=== PATIENT | male | born 1940 | race Caucasian/White ===

== ENCOUNTER 2016-09-01 20:29 | Inpatient (IN) ==
[2016-09-01] MEDS ORDERED: *HR* Morphine 2 MG/ML SYRINGE IVP ONE (23:58)
[2016-09-02] MEDS ORDERED: Naloxone 0.4 MG/ML INJ IVP PRN (00:16)
[2016-09-02] MEDS ORDERED: Ondansetron 4 MG/2 ML VIAL IVP PRN (00:16)
[2016-09-02] MEDS ORDERED: *HR* HYDROmorphone (PF) 1 MG/ML SYRINGE IVP PRN (00:16)
[2016-09-02] MEDS ORDERED: Albumin 25% 25gram/100mL 25 GM/100 ML IV.SOLN ONE ×3 (01:21→04:11)
[2016-09-02] MEDS: Albumin 25% 25gram/100mL 25 GM/100 ML IV.SOLN IVPB PRN ×4 (01:25→05:15)
--- NOTE | 2016-09-02 02:40 | Internal Med History&Physical ---
Date of Encounter: 09/02/16 Time of Encounter: 00:30 Assessment and Plan (1) Sepsis Current visit: No Status: Acute Severe sepsis. Patient presented with fever, leukopenia with SBP as the presumed source. Initial lactate was 4.7. Repeat is ordered. Blood cultures were not drawn in the emergency department. They have been ordered stat. Patient was initially given vancomycin and Zosyn. This been changed to cefotaxime 2 mg every 8 hours. Patient received fluid hydration in the emergency department Qualifiers: Sepsis type: sepsis due to unspecified organism Qualified Code(s): A41.9 - Sepsis, unspecified organism (2) SBP (spontaneous bacterial peritonitis) Current visit: No Status: Acute Patient underwent diagnostic and therapeutic paracentesis. Please see procedure note for details. Fluid has been sent for analysis. Patient was initially started on vancomycin and Zosyn. This has been changed to cefotaxime 2 g every 8 hours. Patient was given albumin postprocedure. (3) Cirrhosis of liver with ascites Current visit: Yes Status: Acute Due to alcohol abuse. Patient did not have varices on most recent EGD. We will consult gastroenterology. Qualifiers: Hepatic cirrhosis type: alcoholic cirrhosis Qualified Code(s): K70.31 - Alcoholic cirrhosis of liver with ascites (4) COPD (chronic obstructive pulmonary disease) Current visit: Yes Status: Acute No evidence of exacerbation. Continue aerosol treatments. Qualifiers: COPD type: unspecified COPD Qualified Code(s): J44.9 - Chronic obstructive pulmonary disease, unspecified (5) Hypothyroidism Current visit: Yes Status: Acute Continue Synthroid. Qualifiers: Hypothyroidism type: unspecified Qualified Code(s): E03.9 - Hypothyroidism , unspecified (6) DVT prophylaxis Current visit: Yes Status: Acute EPCDs Internal Medicine - H&P: HPI Chief complaint: Abdominal Pain Admitted From: Emergency Dept Plans for Post Hospital Care: Home History of present illness: Mr. Abad is a 75 year old male with history of cirrhosis who presents with epigastric pain. Patient states his pain has been present for 3 days but got significantly worse today. He states his pain is mainly in the epigastric area but it is all over his abdomen. He describes it as sharp stabbing pain. He states he has never had anything like this before. He reports fever, chills, nausea, vomiting. He reports hard stools and no diarrhea. He reports decreased urine output. He denies chest pain, shortness of breath, lower extremity edema. Past Med Surg Social Fam HX - Past Medical History Medical history: cirrhosis, COPD, coronary artery disease, diabetes, GERD, hyperlipidemia, hypertension, thyroid disease, other Psychiatric history: anxiety - Past Surgical History Surgical History: coronary bypass (CABG) - Social History Smoking Status: Former smoker Packs per day: 4-5 Smokeless Tobacco Status: No Alcohol use: none Drug use: none - Family History Father Name: PRABHU ABAD Age: 85 Family Member Ethnicity: Non- Living Status: Age at : 85 Hx Family Cardiac Disorders: Yes Hx Family Respiratory Disorders: Yes (SISTER COPD) Hx Family Cancer: No Hx Family GI Disorders: No Hx Family Genitourinary Disorders: No Hx Family Endocrine Disorder: Yes Hx Family Musculoskeletal Disorders: No Hx Family Neuromuscular Disorders: No Hx Family Neurologic Disorders: Yes (MOTHER- ALZHEIMERS) Hx Family HEENT Disorders: No Hx Family Autoimmune Disorders: No Hx Family Reproductive Disorders: No Hx Family Psychosocial Disorders: No Hx Family Medical Disorders: No Internal Medicine - H&P: Meds Citalopram [CeleXA] 20 mg PO DAILY 06/10/16 [History] Finasteride [Proscar] 5 mg PO DAILY 06/10/16 [History] Levothyroxine [Synthroid] 125 mcg PO 0630 06/10/16 [History] Pantoprazole [Protonix] 40 mg PO DAILY 06/10/16 [History] Ranitidine HCl [Zantac] 300 mg PO DAILY 06/10/16 [History] Simvastatin [Zocor] 20 mg PO HS 06/10/16 [History] Tamsulosin [Flomax] 0.4 mg PO DAILY 06/10/16 [History] Tiotropium [Spiriva] 18 mcg IN DAILY 06/10/16 [History] Ascorbic Acid [Vitamin C] 500 mg PO 0630 #30 tablet 06/14/16 [Rx] Ferrous Sulfate 325 mg PO 0630 #30 tablet 06/14/16 [Rx] Folic Acid 1 mg PO DAILY #15 tablet 06/14/16 [Rx] Allergies No Known Drug Allergies Allergy (Verified 09/01/16 17:30) none All Systems PM: A 10-system review of systems was performed and is negative for pertinent findings except as documented above in the HPI. - Constitutional Constitutional: chills, fever(s) - EENT Eyes: no blurry vision, no change in vision Nose, mouth and throat: no sinus pain, no sinus pressure, no sore throat - Cardiovascular Cardiovascular ROS IM: no chest pain, no dyspnea, no edema - Respiratory Respiratory: no cough, no dyspnea - Gastrointestinal Gastrointestinal: abdominal pain, constipation, nausea, vomiting, no change in bowel habits, no hematemesis, no hematochezia, no melena - Genitourinary Genitourinary ROS male: no dysuria, no hematuria - Musculoskeletal Musculoskeletal ROS IM: no numbness, no tingling - Integumentary Integumentary IM: no erythema - Neurological Neurological ROS: no confusion, no numbness, no tingling - Psychiatric Psychiatric: no anxiety, no panic attacks - Endocrine Endocrine IM: no polydipsia, no polyuria - Constitutional General appearance: Present: A&O X 3 (Appears uncomfortable) - Head Head exam: Present: atraumatic, normal inspection, normocephalic - Eye Eye exam: Present: EOMI, PERRL, sclera anicteric - ENT ENT exam: Present: mucous membranes dry - Respiratory Respiratory exam: Present: CTAB. Absent: rales, rhonchi, wheezes - Cardiovascular Cardiovascular exam: Present: RRR. Absent: gallop, rubs, systolic murmur - GI/Abdominal GI/Abdominal exam: Present: diminished bowel sounds, distended, firm, tenderness (Diffuse). Absent: rebound, rigid Additional comments: Patient had fluid wave, dullness to percussion - Extremities Exam Extremities exam: Present: warm. Absent: pedal edema, tenderness - Neurological Exam Neurological exam: Present: alert, CN II-XII intact, oriented X3, no focal deficits
--- NOTE | 2016-09-02 02:57 | Procedure Note ---
Date of procedure: 09/02/16 Pre-op diagnosis: Ascites/concern for SBP Post-op diagnosis: same Procedure: Written consent was obtained from the patient. The abdomen was surveyed using ultrasound and a large pocket of ascitic fluid was identified in the left lower quadrant. Patient was cleaned and draped in the usual sterile fashion. The skin, subcutaneous tissues, and peritoneal lining were anesthetized using 1% lidocaine. The lorenzo in the skin was made and the catheter over needle apparatus was advanced into the peritoneal space until fluid was returned. The needle was removed and the catheter was advanced in the peritoneal space. Approximately 4 L of clear straw-colored ascitic fluid were removed and sent to the lab for analysis. The catheter was then removed intact and dressing was applied. The patient tolerated the procedure well, there are no immediate complications. The patient had immediate relief of his pain post procedure. The attending physician, Dr. Pham, was present and supervised the entire procedure. Anesthesia: local Surgeon: Deric Merlos Estimated blood loss (cc): 0 Pathology: other (4L Ascitic fluid sent to the lab) Condition: stable Disposition: floor
[2016-09-02] MEDS ORDERED: 0.9 % Sodium Chloride 500 ML IVC ONE (03:50)
[2016-09-02] MEDS: 0.9 % Sodium Chloride 1,000 ML ONE ×2 (03:55→08:46)
[2016-09-02 04:55] LABS: INR 1.9; Prothrombin Time 21.4 Seconds (9.4-12.1)
[2016-09-02 05:55] LABS: Red Cell Distribution Width 15.1 % (11.5-14.5)
[2016-09-02 05:57] LABS: Hematocrit 29.8 % (37.5-50.1); Hemoglobin 9.5 g/dL (12.9-16.9); Immature Platelets 19.1 % (1.1-6.1); Mean Corpuscular HGB Conc 31.9 g/dL (31.6-35.5); Mean Corpuscular Hemoglobin 30.8 pg (28.0-33.3); Mean Corpuscular Volume 96.8 fL (83.0-100.0); Mean Platelet Volume 13.6 fL (9.4-12.4); Red Blood Count 3.08 M/mcL (4.19-5.50)
[2016-09-02 06:24] LABS: RBC,Peritoneal Fluid < 0.002 M/mcL
[2016-09-02 06:29] LABS: Amylase,Peritoneal Fluid 13 Units/L (No Ref Range); Glucose,Peritoneal Fluid 176 mg/dL (No Ref Range); LDH,Peritoneal Fluid 36 Units/L (No Ref Range)
[2016-09-02 06:31] LABS: Total Protein,Peritoneal Fluid < 0.8 g/dL (No Ref Range)
[2016-09-02 06:34] LABS: Albumin/Globulin Ratio 1.4 (1.1-2.2); Bilirubin,Total 5.9 mg/dL (0.2-1.2); Calcium 8.1 mg/dL (8.6-10.8); Globulin 2.2 g/dL (2.4-3.5); Magnesium 1.7 mg/dL (1.6-2.6); Potassium 3.8 mEq/L (3.5-4.5); Total Protein 5.3 g/dL (6.0-8.3)
[2016-09-02 06:35] LABS: Albumin 3.1 g/dL (3.5-5.0)
[2016-09-02 07:41] LABS: Platelet Count 38 K/mcL (140-400)
[2016-09-02 08:01] LABS: Appearance of Peritoneal Fl CLEAR (Clear)
[2016-09-02] MEDS: Cefotaxime 2,000 MG in D5% in Water 100 ML IVPB SCH ×2 (08:45→17:28)
[2016-09-02 09:38] LABS: Lymphocytes # 0.8 K/mcL (0.6-4.6); Neutrophils # 11.4 K/mcL (1.6-8.9)
[2016-09-02 09:40] LABS: Burr Cells 1+ (Not Present)
[2016-09-03 00:51] LABS: blaKPC Carbapenem-Resist Gene Not Detected (Not Detect)
[2016-09-03 00:52] LABS: Acinetobacter baumannii by PCR Not Detected (Not Detect); Candida albicans by PCR Not Detected (Not Detect); Candida glabrata by PCR Not Detected (Not Detect); Candida krusei by PCR Not Detected (Not Detect); Candida parapsilosis by PCR Not Detected (Not Detect); Candida tropicalis by PCR Not Detected (Not Detect); Enterococcus by PCR Not Detected (Not Detect); Klebsiella oxytoca by PCR Not Detected (Not Detect); Klebsiella pneumoniae by PCR Not Detected (Not Detect); Pseudomonas aeruginosa by PCR Not Detected (Not Detect); Serratia marcescens by PCR Not Detected (Not Detect); Staphylococcus aureus by PCR Not Detected (Not Detect); Streptococcus agalactiae(B)PCR Not Detected (Not Detect); Streptococcus by PCR Not Detected (Not Detect); Streptococcus pneumoniae PCR Not Detected (Not Detect); Streptococcus pyogenes (A) PCR Not Detected (Not Detect)
[2016-09-03 00:54] LABS: Escherichia coli by PCR ***DETECTED*** (Not Detect)
[2016-09-03] MEDS: Cefotaxime 2,000 MG in D5% in Water 100 ML IVPB SCH ×4 (00:58→23:54)
[2016-09-03 05:08] LABS: Mean Corpuscular Volume 97.7 fL (83.0-100.0)
[2016-09-03 05:11] LABS: Hematocrit 29.7 % (37.5-50.1); Hemoglobin 9.2 g/dL (12.9-16.9); Immature Platelets 26.7 % (1.1-6.1); Mean Corpuscular Hemoglobin 30.3 pg (28.0-33.3); Mean Platelet Volume 13.8 fL (9.4-12.4); Red Blood Count 3.04 M/mcL (4.19-5.50); Red Cell Distribution Width 15.4 % (11.5-14.5)
[2016-09-03 05:16] LABS: Platelet Count 34 K/mcL (140-400)
[2016-09-03 05:34] LABS: Magnesium 1.2 mg/dL (1.6-2.6); Potassium 4.4 mEq/L (3.5-4.5)
[2016-09-03 06:12] LABS: Lymphocytes # 0.3 K/mcL (0.6-4.6); Monocytes # 0.3 K/mcL (0.0-1.3); Neutrophils # 7.5 K/mcL (1.6-8.9); Platelet Estimate Marked Decrease (Normal)
[2016-09-03] MEDS: Finasteride 5 MG TABLET PO SCH (07:44)
[2016-09-03] MEDS ORDERED: Magnesium Sulfate 2 GM in D5% in Water 100 ML IVPB ONE (10:54)
[2016-09-03] MEDS ORDERED: Albumin 25% 25gram/100mL 25 GM/100 ML IV.SOLN IVPB STA (11:02)
[2016-09-03 14:53] LABS: Calcium 8.3 mg/dL (8.6-10.8)
[2016-09-03] MEDS ORDERED: Albumin 25% 25gram/100mL 25 GM/100 ML IV.SOLN IVPB SCH (16:00)
[2016-09-03] MEDS: Ipratropium/Albuterol Neb 3 ML AER SCH ×2 (17:08→20:41)
--- NOTE | 2016-09-03 18:47 | Internal Med Progress Note ---
Date of Encounter: 09/03/16 Time of Encounter: 10:30 - Assessment and plan (1) Sepsis Current Visit: No Status: Acute Assessment and plan: secondary to GNR bacteremia and SBP. PAtient underwent paracentesis with removal of 4L. 09/02 blood culture growing GNR 1/2. ascitic fluid is growing nothing to date. 09/03 repeat BCx pending. clinically slowly improving. continue IV cefotaxime. Qualifiers: Sepsis type: sepsis due to unspecified organism Qualified Code(s): A41.9 - Sepsis, unspecified organism (2) SBP (spontaneous bacterial peritonitis) Current Visit: No Status: Acute Assessment and plan: plan as above. (3) Bacteremia due to Gram-negative bacteria Current Visit: Yes Status: Acute Assessment and plan: plan as above. (4) Acute renal failure superimposed on stage 3 chronic kidney disease Current Visit: Yes Status: Acute Assessment and plan: secondary to sepsis with episodes of hypotension in the setting of liver cirrhosis. close monitoring. IV albumin. repeat bmp this afternoon. consult nephrology. (5) Chronic respiratory failure with hypoxia Current Visit: Yes Status: Acute Assessment and plan: patient uses 2L NC at home. secondary to COPD. nebs q6hr.. (6) Liver cirrhosis Current Visit: Yes Status: Chronic Qualifiers: Hepatic cirrhosis type: unspecified hepatic cirrhosis Ascites presence: with ascites Qualified Code(s): K74.60 - Unspecified cirrhosis of liver - Subjective Interval history: patient's abdominal pain is gone. he has no complains. - Constitutional Vitals: Temp Pulse Resp BP Pulse Ox 98.3 F 68 20 103/56 94 09/03/16 16:40 09/03/16 16:40 09/03/16 18:11 09/03/16 16:40 09/03/16 18:11 General appearance: Present: A&O X 3 (Appears uncomfortable) - Neck Neck exam general surgery: Present: supple, trachea midline. Absent: lymphadenopathy - Respiratory Respiratory exam: Present: CTAB - Cardiovascular Cardiovascular exam: Present: RRR - GI/Abdominal GI/Abdominal exam: Present: normal bowel sounds, soft. Absent: distended, tenderness - Extremities Exam Extremities exam: Present: pedal edema (1+ LE edema) - Back Exam Back exam: Absent: CVA tenderness (L), CVA tenderness (R) - Neurological Exam Neurological exam: Present: alert, oriented X3, no focal deficits, strengths equal and symetr throughout. Absent: facial droop, speech deficit Internal Medicine: Result - Labs CBC & Chem 7: 09/03/16 04:09 09/03/16 13:25 Labs: Short CBC 09/03/16 Range/Units 04:09 WBC 8.2 (4.3-11.1) K/mcL Hgb 9.2 L (12.9-16.9) g/dL Hct 29.7 L (37.5-50.1) % Plt Count 34 L (140-400) K/mcL Neutrophils # 7.5 (1.6-8.9) K/mcL BMP 09/03/16 09/03/16 04:09 13:25 Sodium 139 137 Potassium 4.4 4.0 Chloride 109 107 Carbon Dioxide 23 23 BUN 30 H D 33 H Creatinine 2.80 H D 2.82 H Glucose 139 H 117 H Calcium 8.0 L 8.3 L - ABG Interpretation ABG results: PT/INR, D-dimer PT 21.4 Seconds (9.4-12.1) H 09/02/16 04:27 - VTE Documentation of Mechanical Device: Intermittent pneumatic compression device Consult Discharge Plan - Plan Referrals: Kelin Tripp, PHYSICIAN PRACTICE MARKET MANAGER [Primary Care Provider] - (THIS OFFICE WILL NOT MAKE AN APPOINTMENT UNTIL WE HAVE A DISCHARGE ORDER.)
[2016-09-04] MEDS: Ipratropium/Albuterol Neb 3 ML AER SCH ×6 (00:58→22:03)
[2016-09-04 04:18] LABS: Immature Granulocytes % 1.4 % (0-4)
[2016-09-04 04:20] LABS: Basophils % 0.2 %; Eosinophils % 0.7 %; Hematocrit 28.6 % (37.5-50.1); Hemoglobin 9.3 g/dL (12.9-16.9); Immature Platelets 20.9 % (1.1-6.1); Lymphocytes # 0.3 K/mcL (0.6-4.6); Lymphocytes % 7.3 %; Mean Corpuscular HGB Conc 32.5 g/dL (31.6-35.5); Mean Corpuscular Hemoglobin 31.1 pg (28.0-33.3); Mean Corpuscular Volume 95.7 fL (83.0-100.0); Mean Platelet Volume 14.2 fL (9.4-12.4); Monocytes # 0.3 K/mcL (0.0-1.3); Monocytes % 6.2 %; Neutrophils # 3.7 K/mcL (1.6-8.9); Red Blood Count 2.99 M/mcL (4.19-5.50); Segmented Neutrophils % 84.2 %
[2016-09-04 04:23] LABS: Platelet Count 31 K/mcL (140-400)
[2016-09-04 04:33] LABS: Calcium 8.3 mg/dL (8.6-10.8); Magnesium 1.9 mg/dL (1.6-2.6); Potassium 3.7 mEq/L (3.5-4.5)
[2016-09-04 05:10] LABS: Burr Cells 1+ (Not Present); Platelet Estimate Marked Decrease (Normal); Poikilocytosis 1+ (Not Present)
[2016-09-04] MEDS: Finasteride 5 MG TABLET PO SCH (08:01)
--- NOTE | 2016-09-04 11:40 | Internal Med Progress Note ---
Date of Encounter: 09/04/16 Time of Encounter: 10:15 - Assessment and plan (1) Sepsis Current Visit: No Status: Acute Assessment and plan: secondary to GNR bacteremia and SBP. PAtient underwent paracentesis with removal of 4L on 09/02. 09/02 blood culture growing GNR 1/. ascitic fluid is growing nothing to date. 09/03 repeat BCx pending. clinically slowly improving. continue IV cefotaxime. Qualifiers: Sepsis type: sepsis due to unspecified organism Qualified Code(s): A41.9 - Sepsis, unspecified organism (2) SBP (spontaneous bacterial peritonitis) Current Visit: No Status: Acute Assessment and plan: plan as above. (3) Bacteremia due to Gram-negative bacteria Current Visit: Yes Status: Acute Assessment and plan: plan as above. (4) Acute renal failure superimposed on stage 3 chronic kidney disease Current Visit: Yes Status: Acute Assessment and plan: pre-renal due to hypovolemia vs ATN. secondary to sepsis with episodes of hypotension in the setting of liver cirrhosis. 09/03: received 50 gm IV albumin BUn and CR has trended down slightly. GFR almmost unchanged. Nephrology consult. close monitoring. consult nephrology. (5) Ascites due to alcoholic cirrhosis Current Visit: Yes Status: Acute Assessment and plan: Patient with history of alcoholic liver cirrhosis for at least 10 years. She has had 2 paracentesis in the past, last paracentesis was over a year ago. 08/29: Patient underwent paracentesis with removal of 4 L of ascitic fluid. (6) Liver cirrhosis Current Visit: Yes Status: Chronic Assessment and plan: Patient was diagnosed with alcoholic liver cirrhosis 10 years ago. He quit drinking a long time ago. Qualifiers: Hepatic cirrhosis type: alcoholic cirrhosis Ascites presence: with ascites Qualified Code(s): K70.31 - Alcoholic cirrhosis of liver with ascites (7) Chronic respiratory failure with hypoxia Current Visit: Yes Status: Acute Assessment and plan: patient uses 2L NC at home because of COPD. 09/01 CXR showed no acute process. nebs q6hr. 08/19 echocardiogram showed LVEF 65%. - Subjective Interval history: no abdominal pain. no shortness of breath. - Constitutional Vitals: Temp Pulse Resp BP Pulse Ox 98.0 F 103 18 103/55 96 09/04/16 07:44 09/04/16 07:44 09/04/16 11:09 09/04/16 07:44 09/04/16 11:09 General appearance: Present: A&O X 3 (Appears uncomfortable) - Neck Neck exam general surgery: Absent: supple, trachea midline - Respiratory Respiratory exam: Present: decreased breath sounds - Cardiovascular Cardiovascular exam: Present: RRR - GI/Abdominal GI/Abdominal exam: Present: distended, normal bowel sounds, soft. Absent: tenderness - Extremities Exam Extremities exam: Present: pedal edema (1+ Le edema) - Neurological Exam Neurological exam: Present: alert, oriented X3, no focal deficits, strengths equal and symetr throughout. Absent: facial droop, speech deficit Internal Medicine: Result - Labs CBC & Chem 7: 09/04/16 03:11 09/04/16 03:11 Labs: Short CBC 09/04/16 Range/Units 03:11 WBC 4.4 (4.3-11.1) K/mcL Hgb 9.3 L (12.9-16.9) g/dL Hct 28.6 L (37.5-50.1) % Plt Count 31 L (140-400) K/mcL Neutrophils # 3.7 (1.6-8.9) K/mcL BMP 09/03/16 09/04/16 13:25 03:11 Sodium 137 137 Potassium 4.0 3.7 Chloride 107 107 Carbon Dioxide 23 22 BUN 33 H 37 H Creatinine 2.82 H 2.70 H Glucose 117 H 160 H Calcium 8.3 L 8.3 L - ABG Interpretation ABG results: PT/INR, D-dimer PT 21.4 Seconds (9.4-12.1) H 09/02/16 04:27 - VTE Documentation of Mechanical Device: Intermittent pneumatic compression device Consult Discharge Plan - Plan Referrals: Kelin Tripp, ELECTRICAL ENGINEERING DRAFTING OFFICER [Primary Care Provider] - (THIS OFFICE WILL NOT MAKE AN APPOINTMENT UNTIL WE HAVE A DISCHARGE ORDER.)
[2016-09-04 12:34] LABS: Calcium 8.7 mg/dL (8.6-10.8); Potassium 3.8 mEq/L (3.5-4.5)
--- NOTE | 2016-09-04 13:18 | Nephrology Consult Note ---
Date of Encounter: 09/04/16 Time of Encounter: 13:15 Assessment and Plan (1) Acute renal failure superimposed on stage 3 chronic kidney disease Current Visit: Yes Status: Acute This appears to be multifactorial. Patient with cirrhosis presenting with low blood pressure, subsequently had a paracentesis and was found to have SBP. JOAN seems to be secondary to hemodynamic changes from prerenal azotemia/ATN that is improving with treatment of his underlying infection, resuming midodrine to avoid hypotension and no longer in a volume negative state. I recommend continuing with current management and avoiding nephrotoxins and diuretics at this time. I will perform a limited JOAN work-up as the patient's renal function seems to be improving slightly. Renal dose medications. (2) Anemia Current Visit: No Status: Acute patient with folate deficiency in the past. Will check current level. Qualifiers: Anemia type: unspecified type Qualified Code(s): D64.9 - Anemia, unspecified (3) SBP (spontaneous bacterial peritonitis) Current Visit: No Status: Acute Continue antibiotics. (4) Cirrhosis of liver with ascites Current Visit: Yes Status: Acute Per primary team/GI. Qualifiers: Hepatic cirrhosis type: alcoholic cirrhosis Qualified Code(s): K70.31 - Alcoholic cirrhosis of liver with ascites History of Present Illness - Reason for Consult Consult date: 09/04/16 Acute Kidney Injury, Chronic Kidney Disease - Chief Complaint JOAN on CKD - History of Present Illness Mr. Abad is a 75 yo man with a history of cirrhosis who presents with abdominal pain and was found to have SBP. He also developed JOAN and nephrology was consulted to evaluate. History was obtained mostly from the electronic record and confirmed with the patient. He currently reports that he feels much better. He denies abdominal pain. He has a poor appetite. He denies nausea or vomiting. He denies rashes or joint swelling. He has never seen a kidney doctor per his recollection. Past Med Surg Social Fam HX - Past Medical History Medical history: cirrhosis, COPD, coronary artery disease, diabetes, GERD, hyperlipidemia, hypertension, thyroid disease, other Psychiatric history: anxiety - Past Surgical History Surgical History: coronary bypass (CABG) - Social History Smoking Status: Former smoker Packs per day: 4-5 Smokeless Tobacco Status: No Alcohol use: none Drug use: none - Family History Father Name: PRABHU ABAD Age: 85 Family Member Ethnicity: Non- Living Status: Age at : 85 Hx Family Cardiac Disorders: Yes Hx Family Respiratory Disorders: Yes (SISTER COPD) Hx Family Cancer: No Hx Family GI Disorders: No Hx Family Genitourinary Disorders: No Hx Family Endocrine Disorder: Yes Hx Family Musculoskeletal Disorders: No Hx Family Neuromuscular Disorders: No Hx Family Neurologic Disorders: Yes (MOTHER- ALZHEIMERS) Hx Family HEENT Disorders: No Hx Family Autoimmune Disorders: No Hx Family Reproductive Disorders: No Hx Family Psychosocial Disorders: No Hx Family Medical Disorders: No Medications and Allergies Citalopram [CeleXA] 20 mg PO DAILY 06/10/16 [History] Finasteride [Proscar] 5 mg PO DAILY 06/10/16 [History] Levothyroxine [Synthroid] 125 mcg PO 0630 06/10/16 [History] Pantoprazole [Protonix] 40 mg PO DAILY 06/10/16 [History] Ranitidine HCl [Zantac] 300 mg PO DAILY 06/10/16 [History] Simvastatin [Zocor] 20 mg PO HS 06/10/16 [History] Tamsulosin [Flomax] 0.4 mg PO DAILY 06/10/16 [History] Ascorbic Acid [Vitamin C] 500 mg PO 0630 #30 tablet 06/14/16 [Rx] Ferrous Sulfate 325 mg PO 0630 #30 tablet 06/14/16 [Rx] Midodrine [ProAmatine] 5 mg PO 0800,1200,1700 09/02/16 [History] Nystatin POWDER [Nystop] 1 appl TP BID 09/02/16 [History] Allergies No Known Drug Allergies Allergy (Verified 09/02/16 08:24) none Review of Systems All Systems: reviewed and no additional remarkable complaints except as stated ( as documented in the HPI.) Exam - Vital Signs Vital signs: Initial Vital Signs Pulse 83 09/01/16 23:00 Vital Signs - Last 8 Hours Temp Pulse Resp BP Pulse Ox 09/04/16 11:35 97.9 F 96 18 110/57 95 09/04/16 11:09 18 96 09/04/16 07:56 18 95 09/04/16 07:44 98.0 F 103 18 103/55 91 09/04/16 05:28 18 96 Intake and Output 09/03/16 09/04/16 09/04/16 23:59 07:59 15:59 Intake Total 100 / 100 220 / 220 Output Total 500 / 500 Balance 100 / 100 -500 / -500 220 / 220 Intake: IV Fluids 100 / 100 100 / 100 Claforan 2,000 MG In 100 / 100 Dextrose 5% 100 ML @ 200 mls/hr IVPB Q8HR [facility] Rx#: [id number] Rocephin 1,000 MG In 100 / 100 Dextrose 5% (Minibag+) 100 ML 100 ML @ 200 mls/ hr IVPB Q24H [facility] Rx#: [id number] Oral 0 / 0 120 / 120 Output: Urine 500 / 500 Other: Meal Breakfast Percent of Meal Consumed 25% Weight 104.5 kg Patient Weight 09/04/16 23:59 Weight 104.5 kg - General Appearance General appearance: well-developed, well-nourished, chronically ill, frail EENT: ATNC Neck: supple Respiratory: clear Cardiology: edema, regular rate, regular rhythm Gastrointestinal: normoactive bowel sounds, no tenderness, obese Integumentary: warm and dry Neurologic: alert and oriented x3 Musculoskeletal: no cyanosis Psychiatric: mood/affect appropriate Results - Lab Results 09/04/16 03:11 09/04/16 12:15 Most recent lab results Calcium 8.7 mg/dL (8.6-10.8) 09/04/16 12:15 Phosphorus 3.0 mg/dL (2.3-4.7) 09/02/16 04:27 Magnesium 1.9 mg/dL (1.6-2.6) 09/04/16 03:11 Consult Discharge Plan - Plan Referrals: Kelin Tripp, ENGINEER AND GEOLOGIST [Primary Care Provider] - (THIS OFFICE WILL NOT MAKE AN APPOINTMENT UNTIL WE HAVE A DISCHARGE ORDER.)
[2016-09-04 16:24] LABS: Bilirubin,Urine Small (Negative); Blood,Urine Negative (Negative); Clarity,Urine Cloudy (Clear); Color,Urine Dark Yellow (Yellow); Glucose,Urine (UA) Normal (Normal); Ketones,Urine Trace mg/dL (Negative); Leukocyte Esterase,Urine Trace (Negative); Nitrite,Urine Negative (Negative); PH,Urine 5.5 pH Units (5.0-8.0); Protein,Urine Trace mg/dL (Neg-Trace); Specific Gravity,Urine 1.018 (1.010-1.025); Urobilinogen,Urine Normal (Normal)
[2016-09-04 16:27] LABS: Hyaline Casts,Urine None Seen per lpf (None-Few); Squamous Epithelial Cell,Urine Moderate per lpf (None-Few)
[2016-09-04 16:38] LABS: Bacteria,Urine Few per hpf (None-Few)
[2016-09-04 17:03] LABS: Protein/Creatinine Ratio,Urine 0.2 mg/mg (0-0.20)
[2016-09-05] MEDS: Ipratropium/Albuterol Neb 3 ML AER SCH ×7 (00:10→23:57)
[2016-09-05 03:21] LABS: Eosinophils % 2.1 %; Hematocrit 28.6 % (37.5-50.1); Hemoglobin 9.2 g/dL (12.9-16.9); Immature Granulocytes % 0.4 % (0-4); Lymphocytes % 10.3 %; Mean Corpuscular HGB Conc 32.2 g/dL (31.6-35.5); Mean Corpuscular Hemoglobin 30.5 pg (28.0-33.3); Mean Corpuscular Volume 94.7 fL (83.0-100.0); Mean Platelet Volume 13.4 fL (9.4-12.4); Monocytes % 9.3 %; Red Blood Count 3.02 M/mcL (4.19-5.50); Red Cell Distribution Width 14.9 % (11.5-14.5); Segmented Neutrophils % 77.5 %
[2016-09-05 03:22] LABS: Basophils % 0.4 %; Eosinophils # 0.1 K/mcL (0.0-0.6); Lymphocytes # 0.3 K/mcL (0.6-4.6); Monocytes # 0.3 K/mcL (0.0-1.3); Neutrophils # 2.2 K/mcL (1.6-8.9); Platelet Count 32 K/mcL (140-400)
[2016-09-05 03:33] LABS: Calcium 8.5 mg/dL (8.6-10.8); Magnesium 2.1 mg/dL (1.6-2.6); Phosphorous 1.6 mg/dL (2.3-4.7); Potassium 3.7 mEq/L (3.5-4.5)
[2016-09-05] MEDS: Finasteride 5 MG TABLET PO SCH (07:57)
--- NOTE | 2016-09-05 13:46 | Nephrology Progress Note ---
Date of Encounter: 09/05/16 Time of Encounter: 13:43 - Assessment and Plan (1) Acute renal failure superimposed on stage 3 chronic kidney disease Current Visit: Yes Status: Acute Renal function improving with holding diuresis and treatment of his infection. Patient with increasing ascites and will likely get paracentesis Tuesday. Give albumin with paracentesis and plan to restart low dose loop diuretic that can be titrated if his renal function stabilizes. (2) Anemia Current Visit: No Status: Acute Monitor for bleeding. Transfuse as needed. Deficient in folate. Will order replacement. Qualifiers: Anemia type: unspecified type Qualified Code(s): D64.9 - Anemia, unspecified (3) SBP (spontaneous bacterial peritonitis) Current Visit: No Status: Acute Continue antibiotic per primary team. (4) Cirrhosis of liver with ascites Current Visit: Yes Status: Acute Will need diuresis once his renal function has stabilized. Per primary team. Qualifiers: Hepatic cirrhosis type: alcoholic cirrhosis Qualified Code(s): K70.31 - Alcoholic cirrhosis of liver with ascites Subjective Principal diagnosis: JOAN on CKD Interval history: Patient seen and evaluated. He is sitting in a chair eating his lunch. His only complaint is that his stomach feels like it may be swelling. ROS otherwise stable. Objective - Vital Signs Vital signs: Vital Signs Temp Pulse Resp BP Pulse Ox 09/05/16 12:27 93 18 97 09/05/16 11:24 97.9 F 93 18 110/61 97 09/05/16 11:15 18 96 09/05/16 08:00 18 95 09/05/16 07:30 105 18 95 09/05/16 07:20 98.0 F 93 16 107/53 96 09/05/16 04:55 18 97 09/05/16 03:58 98.0 F 89 12 125/71 94 09/05/16 03:57 83 09/05/16 00:30 98.2 F 82 14 107/58 94 09/05/16 00:10 18 96 09/04/16 21:44 98 09/04/16 20:58 98.0 F 89 17 111/55 97 09/04/16 20:15 90 09/04/16 16:25 98.0 F 94 18 111/82 96 09/04/16 16:07 18 95 09/04/16 16:00 94 Intake and Output 09/04/16 09/05/16 09/05/16 23:59 07:59 15:59 Intake Total 880 / 880 360 / 360 Output Total 500 / 500 450 / 450 Balance 380 / 380 -450 / -450 360 / 360 Intake: Oral 880 / 880 360 / 360 Output: Urine 500 / 500 450 / 450 Other: Meal Dinner Breakfast Percent of Meal Consumed 60% 90% # Bowel Movement Diapers 1 Weight 100.2 kg Patient Weight 09/05/16 23:59 Weight 100.2 kg - General Appearance General appearance: Present: well-developed, well-nourished EENT: Present: ATNC Neck: Present: supple Respiratory: Present: clear Cardiology: Present: edema, regular rate, regular rhythm Gastrointestinal: Present: normoactive bowel sounds, no tenderness, distended ( and more firm compared to yesterday. ) Integumentary: Present: warm and dry Neurologic: Present: alert and oriented x3 Musculoskeletal: Present: no cyanosis Psychiatric: Present: mood/affect appropriate - Lab 09/05/16 03:11 09/05/16 03:11 Most recent lab results Calcium 8.5 mg/dL (8.6-10.8) L 09/05/16 03:11 Phosphorus 1.6 mg/dL (2.3-4.7) L 09/05/16 03:11 Magnesium 2.1 mg/dL (1.6-2.6) 09/05/16 03:11 Urine Creatinine 110 mg/dL 09/04/16 16:10 Urine Total Protein 22 mg/dL (1-14) H 09/04/16 16:10 - VTE Documentation of Mechanical Device: Intermittent pneumatic compression device Consult Discharge Plan - Plan Referrals: Kelin Tripp, THERAPEUTIC MENTOR [Primary Care Provider] - (THIS OFFICE WILL NOT MAKE AN APPOINTMENT UNTIL WE HAVE A DISCHARGE ORDER.)
[2016-09-05] MEDS: Folic Acid 1 MG TABLET PO SCH (14:29)
--- NOTE | 2016-09-05 17:38 | Internal Med Progress Note ---
Date of Encounter: 09/05/16 Time of Encounter: 11:00 - Assessment and plan (1) Sepsis Current Visit: No Status: Acute Assessment and plan: secondary to GNR bacteremia and SBP. PAtient underwent paracentesis with removal of 4L on 09/02. 09/02 blood culture grew pansensitive E coli /. ascitic fluid is growing nothing to date. clinically slowly improving. continue IV ceftriaxone. repeat blood cultures. Qualifiers: Sepsis type: sepsis due to unspecified organism Qualified Code(s): A41.9 - Sepsis, unspecified organism (2) SBP (spontaneous bacterial peritonitis) Current Visit: No Status: Acute Assessment and plan: plan as above. (3) Bacteremia due to Gram-negative bacteria Current Visit: Yes Status: Acute Assessment and plan: plan as above. (4) Acute renal failure superimposed on stage 3 chronic kidney disease Current Visit: Yes Status: Acute Assessment and plan: pre-renal due to hypovolemia vs ATN. secondary to sepsis with episodes of hypotension in the setting of liver cirrhosis. 09/03: received 50 gm IV albumin BUn and CR continues to trend down. Nephrology is following. close monitoring. consult nephrology. (5) Ascites due to alcoholic cirrhosis Current Visit: Yes Status: Acute Assessment and plan: Patient with history of alcoholic liver cirrhosis for at least 10 years. She has had 2 paracentesis in the past, last paracentesis was over a year ago. 08/29: Patient underwent paracentesis with removal of 4 L of ascitic fluid. Worsening of ascites. repeat IR paracentesis in AM. (6) Liver cirrhosis Current Visit: Yes Status: Chronic Assessment and plan: Patient was diagnosed with alcoholic liver cirrhosis 10 years ago. He quit drinking a long time ago. Qualifiers: Hepatic cirrhosis type: alcoholic cirrhosis Ascites presence: with ascites Qualified Code(s): K70.31 - Alcoholic cirrhosis of liver with ascites (7) Chronic respiratory failure with hypoxia Current Visit: Yes Status: Acute Assessment and plan: patient uses 2L NC at home because of COPD. 09/01 CXR showed no acute process. nebs q6hr. 08/19 echocardiogram showed LVEF 65%. - Subjective Interval history: patient has no abdominal pain but feels his abdomen is more distended compared to yesterday. - Constitutional Vitals: Temp Pulse Resp BP Pulse Ox 97.7 F 87 18 116/61 98 09/05/16 16:23 05/21/17 16:42 09/05/16 16:23 09/05/16 16:23 09/05/16 16:23 General appearance: Present: cooperative, A&O X 3 (Appears uncomfortable), pleasant, no acute distress, answers questions appropriately - Respiratory Respiratory exam: Present: decreased breath sounds (at lung bases) - Cardiovascular Cardiovascular exam: Present: RRR - GI/Abdominal GI/Abdominal exam: Present: distended, normal bowel sounds, soft. Absent: tenderness - Extremities Exam Extremities exam: Present: pedal edema (2+ Le edema) - Neurological Exam Neurological exam: Present: alert, oriented X3, no focal deficits, strengths equal and symetr throughout. Absent: facial droop, speech deficit Internal Medicine: Result - Labs CBC & Chem 7: 09/05/16 03:11 09/05/16 03:11 Labs: Short CBC 09/05/16 Range/Units 03:11 WBC 2.8 L (4.3-11.1) K/mcL Hgb 9.2 L (12.9-16.9) g/dL Hct 28.6 L (37.5-50.1) % Plt Count 32 L (140-400) K/mcL Neutrophils # 2.2 (1.6-8.9) K/mcL BMP 09/05/16 03:11 Sodium 139 Potassium 3.7 Chloride 108 Carbon Dioxide 23 BUN 33 H Creatinine 2.35 H Glucose 147 H Calcium 8.5 L - ABG Interpretation ABG results: PT/INR, D-dimer PT 21.4 Seconds (9.4-12.1) H 09/02/16 04:27 - VTE Documentation of Mechanical Device: Intermittent pneumatic compression device Consult Discharge Plan - Plan Referrals: Kelin Tripp, SYSTEM DEVELOPMENT ENGINEER [Primary Care Provider] - (THIS OFFICE WILL NOT MAKE AN APPOINTMENT UNTIL WE HAVE A DISCHARGE ORDER.)
[2016-09-06] MEDS: Ipratropium/Albuterol Neb 3 ML AER SCH ×6 (04:06→23:58)
[2016-09-06 05:12] LABS: Hematocrit 30.8 % (37.5-50.1)
[2016-09-06 05:14] LABS: Basophils % 0.4 %; Eosinophils # 0.1 K/mcL (0.0-0.6); Eosinophils % 3.4 %; Hemoglobin 9.9 g/dL (12.9-16.9); Immature Granulocytes % 0.7 % (0-4); Immature Platelets 13.7 % (1.1-6.1); Lymphocytes # 0.4 K/mcL (0.6-4.6); Lymphocytes % 15.3 %; Mean Corpuscular HGB Conc 32.1 g/dL (31.6-35.5); Mean Corpuscular Hemoglobin 30.3 pg (28.0-33.3); Mean Corpuscular Volume 94.2 fL (83.0-100.0); Monocytes # 0.3 K/mcL (0.0-1.3); Monocytes % 10.1 %; Neutrophils # 1.9 K/mcL (1.6-8.9); Red Blood Count 3.27 M/mcL (4.19-5.50); Red Cell Distribution Width 14.9 % (11.5-14.5); Segmented Neutrophils % 70.1 %
[2016-09-06 05:16] LABS: INR 1.4; Prothrombin Time 14.9 Seconds (9.4-12.1)
[2016-09-06 05:31] LABS: Albumin 2.8 g/dL (3.5-5.0); Bilirubin,Direct 1.4 mg/dL (0.0-0.5); Bilirubin,Indirect 0.6 mg/dL (0.0-1.2); Calcium 8.9 mg/dL (8.6-10.8); Globulin 2.8 g/dL (2.4-3.5); Phosphorous 1.6 mg/dL (2.3-4.7); Potassium 3.9 mEq/L (3.5-4.5); Total Protein 5.6 g/dL (6.0-8.3)
[2016-09-06 05:35] LABS: Platelet Count 38 K/mcL (140-400)
[2016-09-06] MEDS: Folic Acid 1 MG TABLET PO SCH (10:23)
[2016-09-06] MEDS: Finasteride 5 MG TABLET PO SCH (10:23)
[2016-09-06] MEDS: Albumin 25% 25gram/100mL 25 GM/100 ML IV.SOLN IVPB SCH ×2 (12:33→17:01)
[2016-09-06] MEDS ORDERED: 0.9 % Sodium Chloride 1,000 ML ONE (14:41)
[2016-09-06] MEDS ORDERED: Saliva Stimulant 100ml BOTTLE MM PRN (15:39)
[2016-09-06 16:10] LABS: Bacteria,Urine Few per hpf (None-Few); RBC,Urine 0-3 per hpf (0-3); WBC,Urine 0-3 per hpf (0-3); Yeast,Urine Few per hpf (None Seen)
[2016-09-06 16:11] LABS: Bilirubin,Urine Negative (Negative); Blood,Urine Trace (Negative); Clarity,Urine Clear (Clear); Color,Urine Yellow (Yellow); Glucose,Urine (UA) Normal (Normal); Ketones,Urine Negative (Negative); Specific Gravity,Urine 1.016 (1.010-1.025)
[2016-09-06 16:12] LABS: Leukocyte Esterase,Urine Small (Negative); Nitrite,Urine Negative (Negative); Protein,Urine 30 mg/dL (Neg-Trace); Urobilinogen,Urine Normal (Normal)
--- NOTE | 2016-09-06 17:31 | Nephrology Progress Note ---
Date of Encounter: 09/06/16 Time of Encounter: 17:30 - Assessment and Plan (1) Acute renal failure superimposed on stage 3 chronic kidney disease Current Visit: Yes Status: Acute Renal function improving with holding diuresis and treatment of his infection. Patient with increasing ascites and will get paracentesis Tuesday. Give albumin with paracentesis and plan to restart low dose loop diuretic Tuesday that can be titrated if his renal function stabilizes. (2) Anemia Current Visit: No Status: Acute Monitor for bleeding. Transfuse as needed. Deficient in folate. Will order replacement. Qualifiers: Anemia type: unspecified type Qualified Code(s): D64.9 - Anemia, unspecified (3) SBP (spontaneous bacterial peritonitis) Current Visit: No Status: Acute Continue antibiotic per primary team. (4) Cirrhosis of liver with ascites Current Visit: Yes Status: Acute Will need diuresis once his renal function has stabilized. Per primary team. Qualifiers: Hepatic cirrhosis type: alcoholic cirrhosis Qualified Code(s): K70.31 - Alcoholic cirrhosis of liver with ascites Subjective Principal diagnosis: JOAN on CKD Interval history: Patient seen and evaluated. He is sitting in a chair eating his lunch. His only complaint is that his stomach feels like it may be swelling. ROS otherwise stable. Objective - Vital Signs Vital signs: Vital Signs Temp Pulse Resp BP Pulse Ox 09/06/16 16:15 98.3 F 89 18 124/64 97 09/06/16 16:05 16 97 09/06/16 14:40 98.1 F 89 16 124/64 97 09/06/16 14:22 98.2 F 91 17 120/61 96 09/06/16 14:08 98.2 F 92 17 127/65 96 09/06/16 12:00 97 09/06/16 11:52 98.1 F 97 18 128/65 97 09/06/16 08:24 98.1 F 91 18 110/53 93 09/06/16 08:00 86 09/06/16 07:54 21 94 09/06/16 04:22 98.1 F 92 21 143/77 94 09/06/16 04:07 16 97 09/06/16 04:03 83 09/06/16 00:00 16 93 09/05/16 23:59 98.5 F 84 138/76 92 09/05/16 23:44 85 09/05/16 20:24 16 96 09/05/16 19:45 88 09/05/16 19:05 98.4 F 97 23 136/69 96 09/05/16 18:01 105 20 98 Intake and Output 09/06/16 09/06/16 09/06/16 07:59 15:59 23:59 Intake Total 855 / 855 Output Total 400 / 400 575 / 575 Balance -400 / -400 280 / 280 Intake: IV Fluids 100 / 100 Flexbumin 25 gm In 100 ml 100 / 100 @ 60 mls/hr IVPB Q8H LEONORA Rx#:[id number] Oral 720 / 720 Blood Product 35 / 35 Platelet Pheresis Lp Irr 35 / 35 1st Unit [id number] Output: Urine 400 / 400 575 / 575 Other: Meal Lunch Percent of Meal Consumed 20% # Voids 2 Weight 101.2 kg 101.2 kg Patient Weight 09/06/16 23:59 Weight 101.2 kg - General Appearance General appearance: Present: well-developed, well-nourished EENT: Present: ATNC Neck: Present: supple Respiratory: Present: clear Cardiology: Present: edema, regular rate, regular rhythm Gastrointestinal: Present: no tenderness, distended Integumentary: Present: warm and dry Neurologic: Present: alert and oriented x3 Psychiatric: Present: mood/affect appropriate - Lab 09/06/16 11:16 09/06/16 04:27 Most recent lab results Calcium 8.9 mg/dL (8.6-10.8) 09/06/16 04:27 Phosphorus 1.6 mg/dL (2.3-4.7) L 09/06/16 04:27 Magnesium 2.1 mg/dL (1.6-2.6) 09/05/16 03:11 Urine Creatinine 110 mg/dL 09/04/16 16:10 Urine Total Protein 22 mg/dL (1-14) H 09/04/16 16:10 - VTE Documentation of Mechanical Device: Intermittent pneumatic compression device Consult Discharge Plan - Plan Referrals: Kelin Tripp, ASSURANCE ENGINEER [Primary Care Provider] - (THIS OFFICE WILL NOT MAKE AN APPOINTMENT UNTIL WE HAVE A DISCHARGE ORDER.)
--- NOTE | 2016-09-06 18:28 | Internal Med Progress Note ---
Date of Encounter: 09/06/16 Time of Encounter: 14:30 - Assessment and plan (1) Sepsis Current Visit: No Status: Acute Assessment and plan: resolved. secondary to E coli bacteremia and SBP. PAtient underwent paracentesis with removal of 4L on 09/02. 09/02 blood culture grew pansensitive E coli /. ascitic fluid is growing nothing to date. Qualifiers: Sepsis type: sepsis due to unspecified organism Qualified Code(s): A41.9 - Sepsis, unspecified organism (2) SBP (spontaneous bacterial peritonitis) Current Visit: No Status: Acute Assessment and plan: plan as above. (3) Bacteremia due to Gram-negative bacteria Current Visit: Yes Status: Acute Assessment and plan: E coli bacteremia, pansensitive. continue IV ceftriaxone until September 16. (4) Acute renal failure superimposed on stage 3 chronic kidney disease Current Visit: Yes Status: Acute Assessment and plan: pre-renal due to hypovolemia vs ATN. secondary to sepsis with episodes of hypotension in the setting of liver cirrhosis. 09/03: received 50 gm IV albumin BUn and CR continues to trend down. Nephrology is following. resume furosemide. close monitoring. consult nephrology. (5) Ascites due to alcoholic cirrhosis Current Visit: Yes Status: Acute Assessment and plan: Patient with history of alcoholic liver cirrhosis for at least 10 years. She has had 2 paracentesis in the past, last paracentesis was over a year ago. 08/29: Patient underwent paracentesis with removal of 4 L of ascitic fluid. Worsening of ascites. patient had a transfusion reaction during platelet transfusion. will hold paracentesis until tomorrow. (6) Liver cirrhosis Current Visit: Yes Status: Chronic Assessment and plan: Patient was diagnosed with alcoholic liver cirrhosis 10 years ago. He quit drinking a long time ago. Qualifiers: Hepatic cirrhosis type: alcoholic cirrhosis Ascites presence: with ascites Qualified Code(s): K70.31 - Alcoholic cirrhosis of liver with ascites (7) Chronic respiratory failure with hypoxia Current Visit: Yes Status: Acute Assessment and plan: patient uses 2L NC at home because of COPD. 09/01 CXR showed no acute process. nebs q6hr. 08/19 echocardiogram showed LVEF 65%. (8) Transfusion reaction Current Visit: Yes Status: Acute Assessment and plan: patient developed hives and itching after 35 ml of platelet was infused. platelet transfusion stopped. IV Benadryl given stat. Qualifiers: Encounter type: initial encounter Qualified Code(s): T80.92XA - Unspecified transfusion reaction, initial encounter - Subjective Interval history: patient had allergic reaction to platelet transfusion. he started to itch all over his body and developed hives on his back and left arm. - Constitutional Vitals: Temp Pulse Resp BP Pulse Ox 98.3 F 89 18 124/64 97 09/06/16 16:15 09/06/16 16:15 09/06/16 16:15 09/06/16 16:15 09/06/16 16:15 General appearance: Present: cooperative, A&O X 3 (Appears uncomfortable), pleasant, no acute distress, answers questions appropriately - Neck Neck exam general surgery: Present: supple, trachea midline. Absent: lymphadenopathy - Respiratory Respiratory exam: Present: CTAB - Cardiovascular Cardiovascular exam: Present: RRR - GI/Abdominal GI/Abdominal exam: Present: distended, normal bowel sounds, soft. Absent: tenderness - Extremities Exam Extremities exam: Present: pedal edema (2+ Le edema) - Back Exam Back exam: Absent: CVA tenderness (L), CVA tenderness (R) - Neurological Exam Neurological exam: Present: alert, oriented X3, no focal deficits, strengths equal and symetr throughout. Absent: facial droop, speech deficit - Skin Skin exam: Present: rash (urticaria on back and left arm) Internal Medicine: Result - Labs CBC & Chem 7: 09/06/16 11:16 09/06/16 04:27 Labs: Short CBC 09/06/16 09/06/16 Range/Units 04:27 11:16 WBC 2.7 L (4.3-11.1) K/mcL Hgb 9.9 L (12.9-16.9) g/dL Hct 30.8 L (37.5-50.1) % Plt Count 38 L 37 L (140-400) K/mcL Neutrophils # 1.9 (1.6-8.9) K/mcL BMP 09/06/16 04:27 Sodium 139 Potassium 3.9 Chloride 108 Carbon Dioxide 24 BUN 26 Creatinine 1.98 H Glucose 154 H Calcium 8.9 Liver Function 09/06/16 Range/Units 04:27 Total Bilirubin 2.0 H (0.2-1.2) mg/dL Direct Bilirubin 1.4 H (0.0-0.5) mg/dL AST 22 (5-34) Units/L ALT 19 (0-55) Units/L Alkaline Phosphatase 132 H (38-126) Units/L Albumin 2.8 L (3.5-5.0) g/dL Urine 09/06/16 Range/Units 15:35 Urine Color Yellow (Yellow) Urine Clarity Clear (Clear) Urine pH 6.0 (5.0-8.0) pH Units Ur Specific [place] 1.016 (1.010-1.025) Urine Protein 30 H (Neg-Trace) mg/dL Urine Glucose (UA) Normal (Normal) mg/dL - ABG Interpretation ABG results: PT/INR, D-dimer PT 14.9 Seconds (9.4-12.1) H 09/06/16 04:27 - VTE Documentation of Mechanical Device: Intermittent pneumatic compression device Consult Discharge Plan - Plan Referrals: Kelin Tripp, FLAME CHANNELER [Primary Care Provider] - (THIS OFFICE WILL NOT MAKE AN APPOINTMENT UNTIL WE HAVE A DISCHARGE ORDER.)
[2016-09-07] MEDS: Ipratropium/Albuterol Neb 3 ML AER SCH ×3 (04:15→11:28)
[2016-09-07 06:58] LABS: Magnesium 1.6 mg/dL (1.6-2.6); Potassium 4.3 mEq/L (3.5-4.5)
[2016-09-07 07:09] LABS: Basophils % 0.3 %; Mean Corpuscular HGB Conc 31.8 g/dL (31.6-35.5)
[2016-09-07 07:11] LABS: Eosinophils # 0.1 K/mcL (0.0-0.6); Eosinophils % 3.3 %; Hematocrit 29.9 % (37.5-50.1); Hemoglobin 9.5 g/dL (12.9-16.9); Immature Granulocytes % 0.6 % (0-4); Immature Platelets 13.8 % (1.1-6.1); Lymphocytes # 0.4 K/mcL (0.6-4.6); Mean Corpuscular Volume 94.3 fL (83.0-100.0); Mean Platelet Volume 12.5 fL (9.4-12.4); Monocytes # 0.4 K/mcL (0.0-1.3); Monocytes % 12.4 %; Neutrophils # 2.4 K/mcL (1.6-8.9); Red Blood Count 3.17 M/mcL (4.19-5.50); Red Cell Distribution Width 14.9 % (11.5-14.5); Segmented Neutrophils % 70.4 %
[2016-09-07 07:14] LABS: Platelet Count 38 K/mcL (140-400)
[2016-09-07] MEDS: Finasteride 5 MG TABLET PO SCH (07:37)
[2016-09-07] MEDS: Folic Acid 1 MG TABLET PO SCH (07:37)
[2016-09-07 07:47] LABS: Platelet Estimate Decreased (Normal); Reactive Lymphocytes Present (Not Present)
[2016-09-07] MEDS ORDERED: Lactobacillus 1 EACH CAP.SPRINK PO SCH (09:00)
[2016-09-07] MEDS ORDERED: Furosemide 40 MG TABLET PO SCH (09:00)
--- NOTE | 2016-09-07 10:52 | Discharge Summary ---
Date of Encounter: 09/07/16 Time of Encounter: 10:49 - Discharge Diagnosis (1) Sepsis Priority: Primary Status: Acute Qualifiers: Sepsis type: Escherichia coli Qualified Code(s): A41.51 - Sepsis due to Escherichia coli [E. coli] (2) Acute renal failure superimposed on stage 3 chronic kidney disease Priority: Secondary Status: Acute (3) Ascites due to alcoholic cirrhosis Priority: Secondary Status: Acute (4) Bacteremia due to Gram-negative bacteria Priority: Secondary Status: Acute (5) Chronic respiratory failure with hypoxia Priority: Secondary Status: Acute (6) Liver cirrhosis Priority: Secondary Status: Chronic Qualifiers: Hepatic cirrhosis type: alcoholic cirrhosis Ascites presence: with ascites Qualified Code(s): K70.31 - Alcoholic cirrhosis of liver with ascites (7) SBP (spontaneous bacterial peritonitis) Priority: Secondary Status: Acute (8) Transfusion reaction Priority: Secondary Status: Acute Qualifiers: Encounter type: initial encounter Qualified Code(s): T80.92XA - Unspecified transfusion reaction, initial encounter - Discharge Medications Prescriptions: cefTRIAXone [Rocephin] 1,000 mg IVPB DAILY #9 vial Furosemide [Lasix] 40 mg PO DAILY #30 tablet Home Medications: Citalopram [CeleXA] 20 mg PO DAILY 06/10/16 [History] Finasteride [Proscar] 5 mg PO DAILY 06/10/16 [History] Levothyroxine [Synthroid] 125 mcg PO 0630 06/10/16 [History] Pantoprazole [Protonix] 40 mg PO DAILY 06/10/16 [History] Ranitidine HCl [Zantac] 300 mg PO DAILY 06/10/16 [History] Simvastatin [Zocor] 20 mg PO HS 06/10/16 [History] Tamsulosin [Flomax] 0.4 mg PO DAILY 06/10/16 [History] Ascorbic Acid [Vitamin C] 500 mg PO 0630 #30 tablet 06/14/16 [Rx] Ferrous Sulfate 325 mg PO 0630 #30 tablet 06/14/16 [Rx] Midodrine [ProAmatine] 5 mg PO 0800,1200,1700 09/02/16 [History] Nystatin POWDER [Nystop] 1 appl TP BID 09/02/16 [History] cefTRIAXone [Rocephin] 1,000 mg IVPB DAILY #9 vial 09/06/16 [Rx] Furosemide [Lasix] 40 mg PO DAILY #30 tablet 09/07/16 [Rx] Allergies/Adverse Reactions: Allergies No Known Drug Allergies Allergy (Verified 09/02/16 08:24) none Procedures/tests Complete & Pending: Procedures Performed prior 72 hours Category Date Time Status US retroperitoneal limited [US] Routine Exams 09/04/16 13:28 Completed abdominal ultrasound - limited [US abdomen limited] [US Exams 09/06/16 14:52 Completed ] Routine IR paracentesis ultrasound [IR] Routine IR 09/07/16 Ordered Date of admission: 09/02/16 03:36 Primary care physician: Kelin Tripp CNP Consults: 09/04/16 10:46 Consult to Nephrology [CONS] Routine Consulting Provider: Kidney Katie/DANI/ADRY/ROQUE Reason for Consult: JOAN Call Completed: Yes 09/07/16 09:07 Consult to Invasive Line Access Team [CONS] Routine Reason for Consult: [facility] ATB Line Type: EPIV Discharging clinician: Miladis Baptiste Anticipated date of discharge: 09/07/16 - Patient Status Disposition: Home Health Service Condition: Fair Functional capacity at discharge: independent ambulation Overall status at discharge: patient is progressing back to baseline - Discharge Instructions Instructions: Sepsis (DC) Follow Up With: Kelin Tripp CNP [Primary Care Provider] - (THIS OFFICE WILL NOT MAKE AN APPOINTMENT UNTIL WE HAVE A DISCHARGE ORDER.) Additional Instructions: Follow-up with nephrology in 1-2 weeks For a follow-up with gastroenterology in 1 week for ascites and cirrhosis - Diet and Activity Activity: increase activity as tolerated Diet: low salt diet Hospital course: Mr. Shannon is a 75 year old male with history of alcoholic liver cirrhosis who was admitted here with spontaneous bacterial peritonitis. He was treated with IV antibiotics. He was also having signs and symptoms of sepsis. This was believed to be deviated to bacterial peritonitis. Patient's blood cultures turned positive for Escherichia coli which is pansensitive. Repeat blood cultures since then have been negative. Patient underwent paracentesis on admission with aspiration of 4 L of ascites fluid. Fluid culture was negative. This fluid appears to be transudative. Presently the patient is doing much better and is stable to be discharged home on IV antibiotics to complete treatment course. Patient also had acute kidney injury on presentation superimposed on his chronic kidney disease stage III. Nephrology was consulted. Patient received IV albumin during his stay here and his diuretics were held. His renal function has now returned to baseline. He has now been placed back on diuretics and will follow up with nephrology as outpatient. Patient developed transfusion reaction with hives while he was receiving platelets. The infusion was stopped. His symptoms have subsided after he received Benadryl. - Time Spent with Patient Total time spent providing and/or coordinating discharge services: Greater than 30 minutes (35 min) - Constitutional Vitals: Temp Pulse Resp BP Pulse Ox 99.0 F 81 16 132/78 91 09/07/16 08:07 09/07/16 09:02 09/07/16 08:18 09/07/16 08:07 09/07/16 08:18 General appearance: Present: cooperative, A&O X 3 (Appears uncomfortable), pleasant, no acute distress, answers questions appropriately - Respiratory Respiratory exam: Present: CTAB. Absent: accessory muscle use, rales, rhonchi, wheezes - GI/Abdominal GI/Abdominal exam: Present: distended, normal bowel sounds, soft, no peritoneal signs. Absent: tenderness Additional comments: Ascites present - Neurological Exam Neurological exam: Present: CN II-XII intact, oriented X3, no focal deficits. Absent: facial droop, speech deficit - Skin Skin exam: Present: dry, intact - VTE Documentation of Mechanical Device: Intermittent pneumatic compression device - Attending Attestation This document has been at least partially created by [employer] recognition technology by Dr. Baptiste. Errors in grammar, wording or other phrases may exist. If errors are found after the documentation is signed, they will be addressed individually in the addendum section of this document when appropriate.
[2016-09-07 11:07] VITALS: BP 125/67
--- NOTE | 2016-09-07 11:15 | Nephrology Progress Note ---
Date of Encounter: 09/07/16 Time of Encounter: 11:12 - Assessment and Plan (1) Acute renal failure superimposed on stage 3 chronic kidney disease Current Visit: Yes Status: Acute Kidney function continues to improve. BMP one week after discharge Follow up in office with Dr Cobian in 3 weeks (2) Cirrhosis of liver with ascites Current Visit: Yes Status: Acute per primary team Qualifiers: Hepatic cirrhosis type: alcoholic cirrhosis Qualified Code(s): K70.31 - Alcoholic cirrhosis of liver with ascites (3) Anemia Current Visit: No Status: Acute Stable Qualifiers: Anemia type: unspecified type Qualified Code(s): D64.9 - Anemia, unspecified Subjective Principal diagnosis: JOAN on CKD Interval history: Patient seen and examined. States he may be discharged today. Objective - Vital Signs Vital signs: Vital Signs Temp Pulse Resp BP Pulse Ox 09/07/16 11:04 98.1 F 84 16 125/67 99 09/07/16 09:02 81 09/07/16 08:18 16 91 09/07/16 08:07 99.0 F 92 16 132/78 96 09/07/16 04:15 18 96 09/07/16 03:33 98.3 F 89 16 122/67 95 09/07/16 00:00 16 97 09/06/16 23:16 98.4 F 84 16 126/62 97 09/06/16 20:31 97.9 F 88 18 128/60 96 09/06/16 19:53 18 98 09/06/16 16:15 98.3 F 89 18 124/64 97 09/06/16 16:05 16 97 09/06/16 16:00 90 09/06/16 14:40 98.1 F 89 16 124/64 97 09/06/16 14:22 98.2 F 91 17 120/61 96 09/06/16 14:08 98.2 F 92 17 127/65 96 09/06/16 12:00 97 09/06/16 11:52 98.1 F 97 18 128/65 97 Intake and Output 09/06/16 09/07/16 09/07/16 23:59 07:59 15:59 Intake Total 480 / 480 Output Total 300 / 300 Balance 180 / 180 Intake: Oral 480 / 480 Output: Urine 300 / 300 Other: Meal Breakfast Percent of Meal Consumed 75% - General Appearance General appearance: Present: well-developed, well-nourished EENT: Present: ATNC, mucous membranes moist, hearing intact, vision intact Neck: Present: supple Respiratory: Present: clear Cardiology: Present: edema (mild BLL), normal S1, normal S2 Gastrointestinal: Present: no tenderness, no guarding Integumentary: Present: warm and dry Neurologic: Present: alert and oriented x3 Psychiatric: Present: mood/affect appropriate, cooperative - Lab 09/07/16 06:36 09/07/16 06:36 Most recent lab results Calcium 9.0 mg/dL (8.6-10.8) 09/07/16 06:36 Phosphorus 1.6 mg/dL (2.3-4.7) L 09/06/16 04:27 Magnesium 1.6 mg/dL (1.6-2.6) 09/07/16 06:36 Urine Creatinine 110 mg/dL 09/04/16 16:10 Urine Total Protein 22 mg/dL (1-14) H 09/04/16 16:10 - VTE Documentation of Mechanical Device: Intermittent pneumatic compression device Consult Discharge Plan - Plan Instructions: Sepsis (DC) Referrals: Kelin Tripp, CLINICAL PHARMACY MANAGER [Primary Care Provider] - (THIS OFFICE WILL NOT MAKE AN APPOINTMENT UNTIL WE HAVE A DISCHARGE ORDER.) Prescriptions: cefTRIAXone [Rocephin] 1,000 mg IVPB DAILY #9 vial Furosemide [Lasix] 40 mg PO DAILY #30 tablet
--- NOTE | 2016-09-07 13:05 | Physician Discharge Referral ---
Home Health/Hosp Referral Info Transfer to: Home Health Provider in Charge Post Discharge: PCP - Diagnosis (1) Sepsis Priority: Primary Status: Acute (2) Acute renal failure superimposed on stage 3 chronic kidney disease Priority: Secondary Status: Acute (3) Ascites due to alcoholic cirrhosis Priority: Secondary Status: Acute (4) Bacteremia due to Gram-negative bacteria Priority: Secondary Status: Acute (5) Chronic respiratory failure with hypoxia Priority: Secondary Status: Acute (6) Liver cirrhosis Priority: Secondary Status: Chronic (7) SBP (spontaneous bacterial peritonitis) Priority: Secondary Status: Acute (8) Transfusion reaction Priority: Secondary Status: Acute - Respiratory Orders Oxygen / L per min (2) Smoking Cessation: Smoking cessation has been advised. For more information, call the [employer] Quit Line at 7-390-BVAS-NOW. - Diet/Nutrition Diet/Nutrition Orders: Cardiac, No Concentrated Sweets (and diabetic) - Services Needed Following services are medically necessary services: Nursing, Home Infusion Home Care Orders: HbA1c level - Transfer Medications Prescriptions: cefTRIAXone [Rocephin] 1,000 mg IVPB DAILY #9 vial Furosemide [Lasix] 40 mg PO DAILY #30 tablet Home Medications: Citalopram [CeleXA] 20 mg PO DAILY 06/10/16 [History] Finasteride [Proscar] 5 mg PO DAILY 06/10/16 [History] Levothyroxine [Synthroid] 125 mcg PO 0630 06/10/16 [History] Pantoprazole [Protonix] 40 mg PO DAILY 06/10/16 [History] Ranitidine HCl [Zantac] 300 mg PO DAILY 06/10/16 [History] Simvastatin [Zocor] 20 mg PO HS 06/10/16 [History] Tamsulosin [Flomax] 0.4 mg PO DAILY 06/10/16 [History] Ascorbic Acid [Vitamin C] 500 mg PO 0630 #30 tablet 06/14/16 [Rx] Ferrous Sulfate 325 mg PO 0630 #30 tablet 06/14/16 [Rx] Midodrine [ProAmatine] 5 mg PO 0800,1200,1700 09/02/16 [History] Nystatin POWDER [Nystop] 1 appl TP BID 09/02/16 [History] cefTRIAXone [Rocephin] 1,000 mg IVPB DAILY #9 vial 09/06/16 [Rx] Furosemide [Lasix] 40 mg PO DAILY #30 tablet 09/07/16 [Rx] Allergies/Adverse Reactions: Allergies No Known Drug Allergies Allergy (Verified 09/02/16 08:24) none Certification: Further, I certify that my clinical findings support that this patient is homebound (i.e. absences from home require considerable and taxing effort and are for medical reasons or bahai services or infrequently or short duration when for other reasons) because: Homebound Reason: Patient requires assistance of a person or device to safely leave home (Patient requiring Home IV antibiotics. ) Attestation: My signature below is to certify that this patient is under my care and that I, or nurse practitioner, or a physician's rn first assistant working with me, has a face-to -face encounter with this patient.
== END 2016-09-07 15:15 | disposition home health service (06) | DRG 871 ==
LOC: 2NNU → SUATTDRO 09-02 03:36
PROVIDERS: ADMIT Internal Medicine; ATTEND Internal Medicine

== ENCOUNTER 2017-01-06 08:40 | Inpatient (IN) ==
[2017-01-06] MEDS ORDERED: Ondansetron 4 MG/2 ML VIAL IVP PRN (12:10)
[2017-01-06] MEDS ORDERED: Naloxone 0.4 MG/ML INJ IVP PRN (12:10)
[2017-01-06] MEDS ORDERED: D5% in 0.45% NACL 1,000 ML IVC SCH (12:15)
[2017-01-06] MEDS ORDERED: D5% in 0.9% NACL 1,000 ML IVC SCH (12:45)
--- NOTE | 2017-01-06 12:50 | Internal Med History&Physical ---
<Sesar Steen J - Last Filed: 01/06/17 12:51> Date of Encounter: 01/06/17 Time of Encounter: 12:49 Assessment and Plan (1) Hypoglycemia Current visit: Yes Status: Acute Presented to [place] ED with confusion, diaphoresis and altered mental status. Metabolic panel revealed hypoglycemia with blood glucose of 29. Given 1 amp of D50 while at [place] ED. blood glucose on arrival at [facility] 103. Patient is now mentating appropriately. He reports that he has been having low blood sugars off and on for the last few months. He used to take basal insulin at night however due to hypoglycemic episodes his primary care provider stopped [place] insulin dose and started him on metformin. Continue to have hypoglycemia so PCP placed patient on glipizide. He took Glipizide last night and had hypoglycemia today. Zofran 4 mg every 6 hours when necessary for nausea, Resume diet when tolerable, Start ensure with every meal encouraged patient to eat Hold oral Hypoglycemics Will not start sliding scale this time. Every 6 hours Accu-Cheks (2) Hepatic encephalopathy Current visit: Yes Status: Acute History of cirrhosis requiring weekly paracentesis. Most recent paracentesis Tuesday. Ammonia 72, confusion, dizziness, hepatic encephalopathy. Recheck ammonia in AM (3) Cellulitis of left lower leg Current visit: Yes Status: Acute Cellulitis to LLE, erythematous with open ulcers. He does not appear ill, WBC 5.2. Will start ancef 1g Q8HR for treatment. (4) DVT prophylaxis Current visit: Yes Status: Acute Risk for DVT, prolonged immobility d/t hospital stay. Start lovenox 40mg SC daily. Internal Medicine - H&P: HPI Chief complaint: DIZZINESS, N/V, hypoglycemia, hepatic encephalopathy Admitted From: Home Plans for Post Hospital Care: Home History of present illness: Mr. Shannon is a 76 year old male with a PMH of diabetes, hypertension, asthma, COPD, HLD, thrombocytopenia, varices, cirrhosis requiring weekly training, hypothyroidism, anxiety, BPH, and CABG. Presents to [facility] today with acute mental status change. Per patient and from chart review and patient report. Patient states that he woke up this morning is filling extremely dizzy and nauseous and began vomiting. He says his noticed that he was not acting the same she took him to buy daily. He presented to a daily with acute mental status change, metabolic panel revealed hypoglycemia blood glucose of 29. He was given an amp of D50, glucose improved and confusion subsided. CT of head negative chest x-ray no acute pulmonary process, CBC unremarkable, ammonia 72. While in the [place] ED he was initially tachycardic, tachypneic and diaphoretic and there was some concern from family and ED doctor about peritonitis since patient undergoes weekly paracentesis. However, by the time he arrived to [facility] he was no longer tachycardic, diaphoretic or tachypneic. Denies abdominal pain, fevers, weight loss, diarrhea. Admits to dizziness, decrease in appetite as abdomen swells that is chronic, nausea/vomiting which has subsided at this time, and dizziness. The patient appears to be stable at this time, blood glucose on arrival 103. Mentating well at time of exam. Admitted for further workup and evaluation and lab values did reveal elevated ammonia of 72, concern for hepatic encephalopathy. Past Med Surg Social Fam HX - Past Medical History Medical history: asthma, cirrhosis, COPD, coronary artery disease, diabetes, GERD, hyperlipidemia, hypertension, thyroid disease, other Psychiatric history: anxiety - Past Surgical History Surgical History: appendectomy, cholecystectomy, coronary bypass (CABG), other - Social History Smoking Status: Former smoker Smokeless Tobacco Status: No Alcohol use: none Drug use: none - Family History Father Family Member Ethnicity: Non- Living Status: Hx Family Cardiac Disorders: Yes Hx Family Respiratory Disorders: Yes (SISTER COPD) Hx Family Cancer: No Hx Family GI Disorders: No Hx Family Endocrine Disorder: Yes Hx Family Neuromuscular Disorders: No Hx Family Neurologic Disorders: Yes (MOTHER- ALZHEIMERS) Hx Family HEENT Disorders: No Hx Family Autoimmune Disorders: No Internal Medicine - H&P: Meds Citalopram [CeleXA] 20 mg PO DAILY 06/10/16 [History] Levothyroxine [Synthroid] 125 mcg PO 0630 06/10/16 [History] Pantoprazole [Protonix] 40 mg PO DAILY 06/10/16 [History] Ranitidine HCl [Zantac] 300 mg PO DAILY 06/10/16 [History] Simvastatin [Zocor] 20 mg PO HS 06/10/16 [History] Tamsulosin [Flomax] 0.4 mg PO DAILY 06/10/16 [History] Ferrous Sulfate 325 mg PO 0630 #30 tablet 06/14/16 [Rx] Midodrine [ProAmatine] 5 mg PO 0800,1200,1700 09/02/16 [History] Furosemide [Lasix] 40 mg PO DAILY #30 tablet 09/07/16 [Rx] Cholecalciferol (Vitamin D3) [Vitamin D] 50,000 unit PO QWEEK 11/16/16 [History] Folic Acid 1 mg PO DAILY 11/16/16 [History] GlipiZIDE [Glipizide ER] 10 mg PO DAILY 11/16/16 [History] Spironolactone [Aldactone] 25 mg PO DAILY 11/16/16 [History] Potassium Chloride [K-Tab ER] 20 meq PO DAILY 01/06/17 [History] 3 Allergy/AdvReac Type Severity Reaction Status Date / Time No Known Drug Allergies Allergy none Verified 09/02/16 08:24 All Systems PM: A 10-system review of systems was performed and is negative for pertinent findings except as documented above in the HPI. - Constitutional Constitutional: anorexia (Intermittently, reports experiences anorexia as abdomen swells due to cirrhosis), fatigue (Throughout the night and early this morning however have subsided at this time), night sweats, weakness - EENT Eyes: no blurry vision, no change in vision, no discharge, no pain, no photophobia Ears: no ear discharge, no ear pain, no tinnitus Nose, mouth and throat: no dysphagia, no nasal discharge, no neck pain, no sore throat - Cardiovascular Cardiovascular ROS IM: diaphoresis (Began this morning however, likely due to hypoglycemia), dyspnea on exertion (His chronic), no chest pain, no edema, no lightheadedness, no palpitations, no syncope - Respiratory Respiratory: dyspnea on exertion, no cough, no dyspnea, no wheezing, no excessive phlegm production - Gastrointestinal Gastrointestinal: as per HPI (Which began this morning), abdominal pain ( Minimal intermittent abdominal pain is reported as chronic), nausea, vomiting, no constipation, no diarrhea, no hematemesis, no hematochezia, no melena - Genitourinary Genitourinary ROS male: difficulty urinating (History of BPH, no worse than normal) - Musculoskeletal Musculoskeletal ROS IM: no numbness, no tingling - Integumentary Integumentary IM: no rash, no unusual bruising - Neurological Neurological ROS: confusion (Initially reported some confusion, likely due to hypoglycemia has subsided at this time), dizziness (Began this morning reported with lightheadedness is intermittent ), weakness (Bilateral lower extremity ), no convulsions, no focal weakness, no headache(s), no lack of coordination, no loss of vision, no numbness, no tingling, no tremor(s), no vertigo - Hematologic/Lymphatic Hematologic/Lymphatic: no easy bruising - Constitutional Vitals: Temp Pulse Resp BP Pulse Ox 97.5 F L 72 16 118/63 97 01/06/17 11:42 01/06/17 11:42 01/06/17 11:42 01/06/17 11:42 01/06/17 11:42 General appearance: Present: cooperative, A&O X 3, no acute distress, answers questions appropriately - Head Head exam: Present: atraumatic, normocephalic - Eye Eye exam: Present: PERRL, conjuntiva pink, sclera anicteric Pupils: Present: PERRL - Neck Neck exam general surgery: Present: supple, trachea midline. Absent: lymphadenopathy - Respiratory Respiratory exam: Present: decreased breath sounds, CTAB, prolonged expiratory phase. Absent: accessory muscle use, rales, rhonchi, wheezes - Cardiovascular Cardiovascular exam: Present: RRR, +S1, +S2. Absent: diastolic murmur, gallop, rubs, systolic murmur - GI/Abdominal GI/Abdominal exam: Present: distended, normal bowel sounds, soft, no peritoneal signs. Absent: firm, guarding, mass, rebound, rigid, tenderness - Extremities Exam Extremities exam: Present: warm, radial pulses palpable and symmetrical. Absent : calf tenderness, cyanotic, pedal edema - Expanded Upper Extremities Exam Upper Arm exam: Present: ecchymosis (Ecchymosis bilateral upper extremities scattered and in various stages of healing) Forearm wrist exam: Present: abrasion ( on arrival patient unsure of mechanism of injury but reports it has been there for a few days, bandaged.) - Neurological Exam Neurological exam: Present: alert, CN II-XII intact, oriented X3, no focal deficits. Absent: pronater drift, facial droop, speech deficit - Expanded Neurological Exam Patient oriented to: Present: person, place, time Coma Scale Eye Opening: Spontaneous Coma Scale Motor Response: Obeys Commands Coma Scale Verbal Response: Oriented Coma Scale Total: 15 - Psychiatric Psychiatric exam: Present: normal affect, normal mood - Skin Skin exam: Present: abrasion, dry Internal Med - H&P Results - Labs Labs: Labs reviewed from [place] ED, CBC unremarkable, elevated ammonia of 72, hypoglycemic with glucose of 29 - Diagnostic Studies Chest x-ray Status: image reviewed by me (No acute pulmonary process) CT scan - head Status: image reviewed by me Additional comments: No acute intracranial abnormalities. Stable small vessel ischemic changes without hemorrhage or evidence of acute ischemia <Bridgette Philippe - Last Filed: 01/06/17 18:45> Date of Encounter: 01/06/17 Internal Medicine - H&P: HPI History of present illness: Mr. Shannon is a 76 year old male All Systems PM: A 10-system review of systems was performed and is negative for pertinent findings except as documented above in the HPI. - Constitutional Vitals: Temp Pulse Resp BP Pulse Ox 98.6 F 87 16 103/56 94 01/06/17 15:00 01/06/17 15:00 01/06/17 15:00 01/06/17 15:00 01/06/17 15:00 - Attending Attestation I have personally performed a face to face evaluation on this patient and I discussed the assessment and plan with the nurse practitioner. I have reviewed and agree with the documented care plan. History and Exam by me shows: Mr. Shannon is a 76 year old male with a PMH of diabetes, hypertension, asthma, COPD, HLD, thrombocytopenia, varices, cirrhosis requiring weekly training, hypothyroidism, anxiety, BPH, and CABG. Presents to [facility] today with acute mental status change. Per patient and from chart review and patient report. Patient states that he woke up this morning is filling extremely dizzy and nauseous and began vomiting. He says his noticed that he was not acting the same she took him to buy daily. He presented to a daily with acute mental status change, metabolic panel revealed hypoglycemia blood glucose of 29. He was given an amp of D50, glucose improved and confusion subsided. CT of head negative chest x-ray no acute pulmonary process, CBC unremarkable, ammonia 72. While in the [place] ED he was initially tachycardic, tachypneic and diaphoretic and there was some concern from family and ED doctor about peritonitis since patient undergoes weekly paracentesis. However, by the time he arrived to [facility] he was no longer tachycardic, diaphoretic or tachypneic. Denies abdominal pain, fevers, weight loss, diarrhea. Admits to dizziness, decrease in appetite as abdomen swells that is chronic, nausea/vomiting which has subsided at this time, and dizziness. The patient appears to be stable at this time, blood glucose on arrival 103. Mentating well at time of exam. Gen: A,A, O x 3 Chest: Diminished BS b/l basal regions, no crackles or rales Heart : S1 S2 + RRR no murmurs Abd : Distended a/p 1. Severe hypoglycemia Improved cont accucheks.. No need of coverage.. His HbA1C was normal 2. Acute hepatic encephalopathy COnt Lactulose check Ammonia in AM 3. Left leg cellulities on Ancef 1gm TID
[2017-01-06] MEDS: ceFAZolin 1,000 MG in D5% in Water (Mini-Bag+) 100 ML IVPB SCH ×2 (14:41→23:42)
[2017-01-06] MEDS: Lactulose Oral Soln 20 GM/30 ML UDC PO SCH ×3 (14:41→20:50)
[2017-01-06] MEDS: Cholecalciferol (D-3) 1,000 UNIT TABLET PO SCH (17:15)
[2017-01-07 03:09] LABS: Immature Granulocytes % 0.4 % (0-4); Mean Corpuscular Hemoglobin 31.3 pg (28.0-33.3)
[2017-01-07 03:11] LABS: Basophils % 0.5 %; Eosinophils % 2.7 %; Hematocrit 31.2 % (37.5-50.1); Hemoglobin 10.2 g/dL (12.9-16.9); Immature Platelets 5.6 % (1.1-6.1); Lymphocytes % 13.1 %; Mean Corpuscular HGB Conc 32.7 g/dL (31.6-35.5); Mean Corpuscular Volume 95.7 fL (83.0-100.0); Mean Platelet Volume 11.2 fL (9.4-12.4); Monocytes % 11.7 %; Red Blood Count 3.26 M/mcL (4.19-5.50); Segmented Neutrophils % 71.6 %
[2017-01-07 03:12] LABS: Eosinophils # 0.2 K/mcL (0.0-0.6); Lymphocytes # 0.7 K/mcL (0.6-4.6); Monocytes # 0.6 K/mcL (0.0-1.3); Neutrophils # 3.9 K/mcL (1.6-8.9); Nucleated Red Blood Cells 0.4 /100 WBC (0)
[2017-01-07 03:20] LABS: Platelet Count 61 K/mcL (140-400)
[2017-01-07 03:29] LABS: Albumin 2.3 g/dL (3.5-5.0); Albumin/Globulin Ratio 0.9 (1.1-2.2); Bilirubin,Total 0.9 mg/dL (0.2-1.2); Calcium 8.6 mg/dL (8.6-10.8); Globulin 2.7 g/dL (2.4-3.5); Potassium 4.2 mEq/L (3.5-4.5)
[2017-01-07] MEDS: *HR* Enoxaparin 40 MG/0.4 ML SYRINGE SQ SCH (06:35)
[2017-01-07] MEDS: ceFAZolin 1,000 MG in D5% in Water (Mini-Bag+) 100 ML IVPB SCH ×3 (07:40→20:46)
[2017-01-07] MEDS: Lactulose Oral Soln 20 GM/30 ML UDC PO SCH ×4 (07:40→20:45)
[2017-01-07] MEDS: Famotidine 20 MG TABLET PO SCH (07:43)
[2017-01-07] MEDS: Furosemide 40 MG TABLET PO SCH (07:43)
[2017-01-07] MEDS: Spironolactone 25 MG TABLET PO SCH (07:43)
[2017-01-07] MEDS: Finasteride 5 MG TABLET PO SCH (07:43)
[2017-01-07] MEDS: Folic Acid 1 MG TABLET PO SCH (07:43)
--- NOTE | 2017-01-07 09:45 | Internal Med Progress Note ---
<JeannineHector - Last Filed: 01/07/17 17:38> Date of Encounter: 01/07/17 Time of Encounter: 09:35 - Assessment and plan (1) Hypoglycemia Current Visit: Yes Status: Acute Assessment and plan: Presented to [place] ED with confusion, diaphoresis and altered mental status. Metabolic panel revealed hypoglycemia with blood glucose of 29. Given 1 amp of D50 while at [facility] ED. blood glucose on arrival at [facility] 103. e reports that he has been having low blood sugars off and on for the last few months. He used to take basal insulin at night however due to hypoglycemic episodes his primary care provider stopped [place] insulin dose and started him on metformin. Continue to have hypoglycemia so PCP placed patient on glipizide. He took Glipizide and then subsequently had episode of hypoglycemia. Zofran 4 mg every 6 hours when necessary for nausea. When seen today, patient's confusion seemed to be resolved. He is A&Ox3. Recent glucose level shows 132. - Continue to hold sliding scale for now. - Accu-checks every 6 hours. (2) Hepatic encephalopathy Current Visit: Yes Status: Acute Assessment and plan: History of cirrhosis requiring weekly paracentesis. Most recent paracentesis Tuesday. Ammonia 72 on presentation. Ammonia level is currently at 44. (3) Cellulitis of left lower leg Current Visit: Yes Status: Acute Assessment and plan: Cellulitis to LLE, erythematous with open ulcers. He does not appear ill, WBC 5.5. - Continue cefazolin 1g Q8HR for treatment. (4) DVT prophylaxis Current Visit: Yes Status: Acute Assessment and plan: On lovenox. - Subjective Interval history: Mr. Shannon is a 76 year old male with a PMH of diabetes, hypertension, asthma, COPD, HLD, thrombocytopenia, varices, cirrhosis requiring weekly training, hypothyroidism, anxiety, BPH, and CABG. Presents to [facility] today with acute mental status change. When seen today, patient was A& Ox3. He admits to some weakness and light-headedness, but says that has improved since admission. He denies any dizziness, nausea, vomiting, syncope, fever, shortness of breath, chest pain, abdominal pain, or numbness/tingling. - Constitutional Vitals: Temp Pulse Resp BP Pulse Ox 98.4 F 102 14 101/60 95 01/07/17 06:57 01/07/17 06:57 01/07/17 06:57 01/07/17 06:57 01/07/17 06:57 General appearance: Present: cooperative, A&O X 3, no acute distress, answers questions appropriately - Respiratory Respiratory exam: Present: CTAB. Absent: respiratory distress, rhonchi, wheezes , tachypnea - Cardiovascular Cardiovascular exam: Present: RRR, +S1, +S2. Absent: diastolic murmur, systolic murmur, tachycardia - GI/Abdominal GI/Abdominal exam: Present: distended, normal bowel sounds, soft. Absent: guarding, rebound, tenderness - Extremities Exam Extremities exam: Present: normal capillary refill, radial pulses palpable and symmetrical. Absent: cyanotic, pedal edema, tenderness Additional comments: Pedal pulses intact bilaterally. Open wound on LLE. No signs of active bleeding , pus, or drainage. Erythema of lower extremities bilaterally. Internal Medicine: Result - Labs CBC & Chem 7: 01/07/17 02:55 01/07/17 02:55 Labs: Short CBC 01/07/17 Range/Units 02:55 WBC 5.5 (4.3-11.1) K/mcL Hgb 10.2 L (12.9-16.9) g/dL Hct 31.2 L (37.5-50.1) % Plt Count 61 L (140-400) K/mcL Neutrophils # 3.9 (1.6-8.9) K/mcL BMP 01/07/17 02:55 Sodium 139 Potassium 4.2 Chloride 109 Carbon Dioxide 23 BUN 23 Creatinine 1.78 H Glucose 132 H Calcium 8.6 Liver Function 01/07/17 Range/Units 02:55 Total Bilirubin 0.9 (0.2-1.2) mg/dL AST 22 (5-34) Units/L ALT 14 (0-55) Units/L Alkaline Phosphatase 95 (38-126) Units/L Albumin 2.3 L (3.5-5.0) g/dL Laboratory Tests 01/07/17 02:55 Ammonia 44 Consult Discharge Plan - Plan Referrals: Kelin Tripp CNP [Non-Partnered Physician] - Guzman Gomez MD [Partnered Physician] - 01/10/17 4:20 pm <Gonzalo Perales - Last Filed: 01/07/17 18:24> Date of Encounter: 01/07/17 - Constitutional Vitals: Temp Pulse Resp BP Pulse Ox 98.5 F 76 14 102/53 96 01/07/17 15:16 01/07/17 15:16 01/07/17 15:16 01/07/17 15:16 01/07/17 15:16 Internal Medicine: Result - Labs CBC & Chem 7: 01/07/17 02:55 01/07/17 02:55 Labs: Short CBC 01/07/17 Range/Units 02:55 WBC 5.5 (4.3-11.1) K/mcL Hgb 10.2 L (12.9-16.9) g/dL Hct 31.2 L (37.5-50.1) % Plt Count 61 L (140-400) K/mcL Neutrophils # 3.9 (1.6-8.9) K/mcL BMP 01/07/17 02:55 Sodium 139 Potassium 4.2 Chloride 109 Carbon Dioxide 23 BUN 23 Creatinine 1.78 H Glucose 132 H Calcium 8.6 Liver Function 01/07/17 Range/Units 02:55 Total Bilirubin 0.9 (0.2-1.2) mg/dL AST 22 (5-34) Units/L ALT 14 (0-55) Units/L Alkaline Phosphatase 95 (38-126) Units/L Albumin 2.3 L (3.5-5.0) g/dL - Attending Attestation I examined this patient and my medical decision-making was reviewed with the Resident Physician. I agree with the documented findings, disposition and treatment plan as described except to the extent set forth below. He is in no acute distress. Heart is regular, lungs are clear. Abdomen distended, soft, nontender. Plan: Hold oral antidiabetic medication. Monitor glucose. We will treat hypoglycemia with IV dextrose. He was transferred from an outside ER for evaluation of severe hypoglycemia. His glucose was 29 at [facility]. He was admitted to our service for treatment of life-threatening hypoglycemia. He received IV dextrose. His glucose has stabilized. He had altered mental status secondary to hepatic encephalopathy which has improved. For this we will continue with lactulose. He also has mild cellulitis and superficial wounds on his lower extremities mostly on the left leg which we will continue to treat with cefazolin and will consult wound care.
[2017-01-07] MEDS: Silvasorb 44.4 ML TUBE TP SCH (14:59)
[2017-01-07] MEDS: Cholecalciferol (D-3) 1,000 UNIT TABLET PO SCH (18:03)
[2017-01-08 04:15] LABS: Basophils % 0.4 %; Eosinophils # 0.2 K/mcL (0.0-0.6); Eosinophils % 3.4 %; Hematocrit 32.4 % (37.5-50.1); Hemoglobin 10.5 g/dL (12.9-16.9); Immature Granulocytes % 0.2 % (0-4); Immature Platelets 4.9 % (1.1-6.1); Lymphocytes % 19.7 %; Mean Corpuscular HGB Conc 32.4 g/dL (31.6-35.5); Mean Corpuscular Hemoglobin 30.8 pg (28.0-33.3); Mean Platelet Volume 11.3 fL (9.4-12.4); Monocytes # 0.6 K/mcL (0.0-1.3); Monocytes % 11.8 %; Neutrophils # 3.3 K/mcL (1.6-8.9); Red Blood Count 3.41 M/mcL (4.19-5.50); Red Cell Distribution Width 15.2 % (11.5-14.5); Segmented Neutrophils % 64.5 %
[2017-01-08 04:18] LABS: Platelet Count 59 K/mcL (140-400)
[2017-01-08 04:31] LABS: Calcium 8.5 mg/dL (8.6-10.8); Potassium 3.9 mEq/L (3.5-4.5)
[2017-01-08] MEDS: *HR* Enoxaparin 40 MG/0.4 ML SYRINGE SQ SCH (05:54)
[2017-01-08 07:09] VITALS: BP 96/50
[2017-01-08] MEDS: Folic Acid 1 MG TABLET PO SCH (09:13)
[2017-01-08] MEDS: Famotidine 20 MG TABLET PO SCH (09:13)
[2017-01-08] MEDS: Finasteride 5 MG TABLET PO SCH (09:13)
[2017-01-08] MEDS: Furosemide 40 MG TABLET PO SCH (09:13)
[2017-01-08] MEDS: Spironolactone 25 MG TABLET PO SCH (09:13)
[2017-01-08] MEDS: Silvasorb 44.4 ML TUBE TP SCH (09:14)
[2017-01-08] MEDS: ceFAZolin 1,000 MG in D5% in Water (Mini-Bag+) 100 ML IVPB SCH (09:15)
[2017-01-08] MEDS: Lactulose Oral Soln 20 GM/30 ML UDC PO SCH (09:19)
--- NOTE | 2017-01-08 09:41 | Discharge Summary ---
<Hector Paez - Last Filed: 01/08/17 16:48> Date of Encounter: 01/08/17 Time of Encounter: 07:45 - Discharge Diagnosis (1) Hypoglycemia Priority: Primary Status: Acute (2) Hepatic encephalopathy Priority: Primary Status: Acute (3) Cellulitis of left lower leg Priority: Primary Status: Acute (4) DVT prophylaxis Priority: Primary Status: Acute - Discharge Medications Prescriptions: Cephalexin [Keflex] 500 mg PO TID #15 capsule Home Medications: Citalopram [CeleXA] 20 mg PO DAILY 06/10/16 [History] Levothyroxine [Synthroid] 125 mcg PO 0630 06/10/16 [History] Pantoprazole [Protonix] 40 mg PO DAILY 06/10/16 [History] Ranitidine HCl [Zantac] 300 mg PO DAILY 06/10/16 [History] Simvastatin [Zocor] 20 mg PO HS 06/10/16 [History] Tamsulosin [Flomax] 0.4 mg PO DAILY 06/10/16 [History] Ferrous Sulfate 325 mg PO 0630 #30 tablet 06/14/16 [Rx] Midodrine [ProAmatine] 5 mg PO 0800,1200,1700 09/02/16 [History] Furosemide [Lasix] 40 mg PO DAILY #30 tablet 09/07/16 [Rx] Cholecalciferol (Vitamin D3) [Vitamin D3] 50,000 unit PO QWEEK 11/16/16 [History ] Folic Acid 1 mg PO DAILY 11/16/16 [History] Spironolactone [Aldactone] 25 mg PO DAILY 11/16/16 [History] Potassium Chloride [K-Tab ER] 20 meq PO DAILY 01/06/17 [History] Cephalexin [Keflex] 500 mg PO TID #15 capsule 01/08/17 [Rx] Finasteride [Proscar] 5 mg PO DAILY tablet 01/08/17 [Rx] Allergies/Adverse Reactions: 3 Allergy/AdvReac Type Severity Reaction Status Date / Time No Known Drug Allergies Allergy none Verified 09/02/16 08:24 Date of admission: 01/06/17 13:45 Primary care physician: PCP NONE Consults: 01/07/17 12:12 Consult to Wound Care [CONS] Routine Reason for Consult: LLE Cellulitis Call Completed: Yes 01/07/17 12:27 Consult to Vein Access Technician [CONS] Routine Reason for SW Consult: Patient will be living home alone d/t 's health status Discharging clinician: Gonzalo Perales (Jeannine) Anticipated date of discharge: 01/08/17 - Patient Status Disposition: Home, Self-Care Condition: Fair Overall status at discharge: patient is progressing back to baseline - Discharge Instructions Instructions: Influenza Virus Vaccine (Injection), Cellulitis (DC), Diabetic Hypoglycemia (DC), Hepatic Encephalopathy (DC) Follow Up With: Kelin Tripp CNP [Non-Partnered Physician] - Guzman Gomez MD [Partnered Physician] - 01/10/17 4:20 pm Additional Instructions: Follow-up appointments: If there is not an appointment listed below, please call your physician and schedule a follow-up appointment. If you have congestive heart failure and your symptoms return, make an appointment with your physician. Medication List: Carry an up to date list of medications you are taking at all time. We have given you an updated medication list including any new medications that you have been prescribed. Please provide that list to your primary provider Symptoms: If your condition changes or you experience any of the following symptoms, notify your physician immediately: Unusual or worsening pain, fever, persistent nausea and vomiting, bleeding, increase in swelling (especially in your legs), sudden weight gain, extreme dizziness, chest pain, increased drainage or redness from a wound or incision. Go to the emergency department if you experience a problem with breathing. Weights: If you have a history of swelling or shortness of breath, weigh yourself daily and notify your physician if you have a weight gain of two or more pounds in one day or 5 or more pounds in a week. If you experience any of the warning signs for stroke: Sudden numbness or weakness of the face, arm or leg; especially on one side of the body, sudden confusion, trouble speaking or understanding, sudden trouble seeing in one or both eyes, sudden trouble walking, dizziness, loss of balance or coordination, sudden sever headache with no cause; Call 911 or go to the emergency room. Stroke is a medical emergency. Some risk factors for stroke: Age, cigarette smoking, diabetes, excessive alcohol consumption, family history , high blood pressure, overweight, physical inactivity, prior stroke, heart attack, diagnosis of carotid artery stenosis or other artery disease. If you smoke, STOP: Smoking or tobacco use significantly increases your risk of heart and lung disease. Your chance of disease greatly increases if you continue to smoke. For more information, call the [place] tobacco quit line for smoking cessation QUIT-NOW ( ) - Diet and Activity Activity: resume usual activities as tolerated Diet: diabetic diet Hospital course: Mr. Shannon is a 76 year old male with a PMH of diabetes, hypertension, asthma, COPD, HLD, thrombocytopenia, varices, cirrhosis requiring weekly training, hypothyroidism, anxiety, BPH, and CABG. Presented to [facility] with acute mental status change. Metabolic panel revealed a the patient was hypoglycemic with a blood glucose of 29 on at [facility]. He was given an amp of D50, glucose improved and confusion subsided. CT of head negative chest x- ray no acute pulmonary process, CBC unremarkable, ammonia 72. While in the [facility] he was initially tachycardic, tachypneic and diaphoretic and there was some concern from family and ED doctor about peritonitis since patient undergoes weekly paracentesis. However, by the time he arrived to [facility] he was no longer tachycardic, diaphoretic or tachypneic. His blood glucose upon arrival to [place] was 103. Patient did have an elevated ammonia level at 72, which raised concern for hepatic encephalopathy. Patient also presented with cellulitis of the LLE. His diabetic medications were held due to concerns of hypoglycemia. His ammonia decreased to normal range. He was started on cefazolin for his cellulitis. When seen today, patient was A&Ox3. He denies any light-headedness, dizziness, syncope, shortness of breath, nausea, vomiting, chest pain, or abdominal pain. He will be discharged with keflex for 5 more days, giving him a total of 8 days on antibiotics. - Time Spent with Patient Total time spent providing and/or coordinating discharge services: Greater than 30 minutes - Constitutional Vitals: Temp Pulse Resp BP Pulse Ox 98.1 F 99 16 96/50 97 01/08/17 07:08 01/08/17 07:08 01/08/17 07:08 01/08/17 07:08 01/08/17 07:08 General appearance: Present: cooperative, A&O X 3, no acute distress, answers questions appropriately - Respiratory Respiratory exam: Present: CTAB. Absent: respiratory distress, rhonchi, wheezes , tachypnea - Cardiovascular Cardiovascular exam: Present: RRR, +S1, +S2. Absent: diastolic murmur, systolic murmur - GI/Abdominal GI/Abdominal exam: Present: distended, normal bowel sounds, soft. Absent: guarding, rebound, tenderness - Extremities Exam Extremities exam: Present: radial pulses palpable and symmetrical. Absent: pedal edema Additional comments: Pedal pulses intact bilaterally. Open wound on LLE. No signs of active bleeding , pus, or drainage. Erythema of lower extremities bilaterally. <Gonzalo Perales - Last Filed: 01/08/17 18:16> Date of Encounter: 01/08/17 Date of admission: 01/06/17 13:45 Primary care physician: PCP NONE Consults: 01/07/17 12:12 Consult to Wound Care [CONS] Routine Reason for Consult: LLE Cellulitis Call Completed: Yes 01/07/17 12:27 Consult to Vein Access Technician [CONS] Routine Reason for SW Consult: Patient will be living home alone d/t 's health status Hospital course: Mr. Shannon is a 76 year old male - Time Spent with Patient Total time spent providing and/or coordinating discharge services: - Constitutional Vitals: Temp Pulse Resp BP Pulse Ox 98.1 F 99 16 96/50 97 01/08/17 07:08 01/08/17 07:08 01/08/17 07:08 01/08/17 07:08 01/08/17 07:08 - Attending Attestation I examined this patient and my medical decision-making was reviewed with the Resident Physician, Dr. Paez. I agree with the documented findings, disposition and treatment plan as described except to the extent set forth below. I have independently obtained history and examined the patient and my findings are summarized below: Patient was admitted for severe hypoglycemia. We stopped all oral antidiabetic medication. I recommend continuing to hold all hypoglycemic medication and I encouraged adherence to diabetic diet. On exam he is in no acute distress awake alert oriented. Heart exam is regular S1-S2 no murmurs. Abdomen is distended with ascites. Plan: We will discharge home. Follow-up with PCP closely. Resume paracentesis on Mondays per prior outpatient regimen. There is no evidence of SBP. He has mild cellulitis of the left lower extremity for which we will prescribe Keflex.
[2017-01-08 10:06] LABS: Hemoglobin A1C 4.5 %
[2017-01-08] MEDS ORDERED: FLUARIX QUAD 2017-18 36MOS UP/PF 0.5 ML SYRINGE IM ONE (10:33)
== END 2017-01-08 11:41 | disposition home or self-care (01) | DRG 637 ==
LOC: 3BNU → SUATTDRO 13:45
PROVIDERS: ADMIT Family Medicine; ATTEND Internal Medicine